=== PATIENT | male | born 1985 | race Caucasian/White ===

== ENCOUNTER 2016-08-30 03:12 | Inpatient (IN) | payer MEDICAID ==
[~2016-08-30] VITALS: Ht 170.2 cm; Wt 80.0 kg
[2016-08-30] VITALS (12 sets, daily range): BP systolic 88–112; BP diastolic 57–67; PULSE 90–95; RESP 14–19; TEMP 98.9; Ht 170.2 cm; Wt 80.0 kg
[2016-08-30] MEDS ORDERED: ONDANSETRON 4 MG INJ IV STA (03:24)
[2016-08-30] MEDS ORDERED: SOD CHLORIDE 0.9% 1,000 ML IV STA ×3 (03:24→06:41)
[2016-08-30] MEDS ORDERED: MIDAZOLAM (DRIP) 50 mg/50 mL 50 ML IV STA ×2 (03:47→17:30)
[2016-08-30] MEDS ORDERED: PROPOFOL 100 ML ONE (03:53)
[2016-08-30] MEDS ORDERED: SOD CHLORIDE 0.9% 1,000 ML IV ONE (04:00)
[2016-08-30] MEDS ORDERED: PIPER-TAZO 3.375 GM IV (PMX) 100 ML IVPB ONE (04:00)
--- NOTE | 2016-08-30 04:03 | ERA ---
ER Documentation Chief Complaint Date/Time DATE: 08/30/16 TIME: 04:01 Chief Complaint HPI 31-year-old man brought in by EMS from home after his family members called 911 for alcohol intoxication. They state he was out with his friends drinking alcohol for most of the night when he lost consciousness and vomited. Family members were later at the bedside deny chronic alcoholism, they deny history of seizures, he had no complaints of chest pain or shortness of breath prior to that episode. HPI was limited as patient was nonverbal. Patient was brought in by EMS on high flow oxygen unresponsive. ROS All systems reviewed and are negative except as per history of present illness. Allergies Allergies: Coded Allergies: No Known Allergy (Unverified , 08/30/16) PMhx/Soc Unknown Smoking Status: Unknown if ever smoked FmHx Family History: No diabetes Physical Exam Vitals Vital Signs Date Time Temp Pulse Resp B/P Pulse Ox O2 Delivery O2 Flow Rate FiO2 08/30/16 03:45 84 14 100 100 08/30/16 03:15 96.8 90 15 134/83 92 Physical Exam GENERAL: Well-developed, well-nourished, unresponsive, afebrile HEENT: Moist mucous membranes, vomitus around the mouth, pink conjunctiva, no cervical spine tenderness or step-off deformities, no goiter, no jaundice or icterus, extraocular movements intact without pain. No submandibular induration , and no pharyngeal erythema NEURO: Unresponsive, pupils equal round reactive to light, no facial asymmetry, GCS equals 3 CARDIAC: Regular rate and rhythm, no murmurs rubs or gallops LUNGS: Poor air entry bilaterally, no wheezing or stridor ABDOMEN: Soft nontender, no guarding, no rigidity, no rebound, no psoas sign no obturator sign. Normoactive bowel sounds SKIN: Warm and dry to touch, no abrasions, contusions, or hematomas, no lacerations, no ecchymosis, no target lesions, and without ulcers EXTREMITIES: No clubbing cyanosis or edema, calves are bilaterally symmetrical, no Homans sign, no popliteal cord sign. Distal pulses equal and bilateral PSYCH: Unable to assess Results 24 hrs Laboratory Tests Test 08/30/16 05:26 Arterial Blood HCO3 19.0mmol/L Arterial Blood Base Excess -6.6mmol/L Arterial Blood Oxygen Saturation 99.3mmHG Bryan Test N/A Arterial Blood Gas Puncture Site Right Brachial Arterial Blood Carboxyhemoglobin 0.3% Arterial Blood Date Drawn 08/30/2016 5:25:39 AM Arterial Blood Methemoglobin 0.5% Arterial Blood pCO2 (Temp correct) 38.3mmhg Arterial Blood pH (Temp corrected) 7.314 Arterial Blood pO2 (Temp corrected) 508.6mmHG Blood Gas A-a O2 Differential 166.1mmHg Blood Gas Actual Respiration Rate 14 Blood Gas Critical Value Read Back Estrella ENGEL Blood Gas Inspiratory Pressure 24.0 Blood Gas Low PEEP Setting 5.0cmH2O Blood Gas Mean Airway Pressure 10 Blood Gas Modality VENT - AC Blood Gas Notified Time 08/30/2016 5:34:19 AM Blood Gas Notified Whom BL Blood Gas Respiration Rate 14.0 Blood Gas Specimen Source Blood arterial Blood Gas Temperature 37.0C Blood Gas Tidal Volume 600.0mL FiO2 100.0% Oxyhemoglobin Percent 98.5% Total Hemoglobin 13.8g/dl Current Medications Medications (Trade) Dose Ordered Sig/Edvin Route PRN Reason Start Time Stop Time Status Last Admin Dose Admin Sodium Chloride (NS) 1,000 ml @ 1,000 mls/hr Q1H STAT IV 08/30/16 03:24 08/30/16 04:23 DC 08/30/16 04:04 Ondansetron HCl 4 mg 4 mg ONCE STAT IV 08/30/16 03:24 08/30/16 03:26 DC 08/30/16 04:04 Sodium Chloride 1,000 ml @ 1,000 mls/hr Q1H ONCE IV 08/30/16 04:00 08/30/16 04:59 DC 08/30/16 05:12 Midazolam HCl 50 ml @ 3 mls/hr ONCE STAT IV 08/30/16 03:47 08/30/16 20:26 08/30/16 04:04 Piperacillin Sod/ Tazobactam Sod 100 ml @ 200 mls/hr ONCE ONCE IVPB 08/30/16 04:00 08/30/16 04:29 DC 08/30/16 05:13 Propofol (Diprivan) 100 ml @ ud STK-MED ONCE .ROUTE 08/30/16 03:53 08/30/16 03:54 DC Lorazepam (Ativan) 2 mg STK-MED ONCE .ROUTE 08/30/16 04:11 08/30/16 04:12 DC Procedures/MDM IV line was established patient was placed on court recording monitor rhythm strip revealed a sinus rhythm at about 80 bpm with upright P and T waves. Patient was afebrile. Blood sugar was normal. EKG performed, read by me: 88 bpm, normal sinus rhythm, normal axis, no acute ST segment changes, narrow QRS complex, with good R-wave progression in precordial leads. Patient's GCS equals 3 and he has evidence of recent vomitus around the mouth and is unable to protect his airway. Endotracheal Intubation by me: Pre assessment performed. Patient was already sedate so he was paralyzed with 100 mg IV succinylcholine. Pre-oxygenation performed with 100% oxygen RSI: Performed w/o complication or hypoxic events. Medications as ordered. Blade: Mac 4 ET Tube: 7.5 cm Depth: 22 cm at the lip Intubation confirmed by colorimetric CO2, equal breath sounds, quiet over the stomach. Chest X-ray 1V Interpreted by me: 3 cm above the lloyd ET tube. Normal soft tissue, No pneumothorax. No obvious infiltrate noted on x-ray although I do suspect recent aspiration CT scan of the brain was performed that was negative for acute bleed mass or shift. Critical Care: Time: 31 minutes, this was time separate from other procedures. Treatments/Evaluations: Close monitoring and treatment of unstable vital signs, cardiorespiratory, and neurologic status, while maintaining tight balance of fluid, respiratory, and cardiac interventions. ABG post intubation revealed a pH of 7.31, PCO2 38, PO2 500 revealing severe metabolic acidosis consistent with his presentation. Patient admitted to intensive care unit under hospitalist. Departure Diagnosis: Primary Impression: Alcohol poisoning Qualified Code: T51.91XA - Alcohol poisoning, accidental or unintentional, initial encounter Additional Impressions: Acute encephalopathy Acute respiratory failure Qualified Code: J96.01 - Acute respiratory failure with hypoxia and hypercapnia Condition: Serious NOLAN HAYES MD Aug 30, 2016 04:03
--- NOTE | 2016-08-30 04:07 | RADRPT ---
PROCEDURE: XR Chest. CLINICAL INDICATION: Abdominal pain. TECHNIQUE: Single frontal view of the chest was obtained COMPARISON: None FINDINGS: Endotracheal intubation is seen, with tip about 2 cm above the lloyd. The heart and mediastinum are within normal limits. The lungs are clear. There is no pleural effusion or pneumothorax. The stomach is distended with air. IMPRESSION: Endotracheal intubation is seen, with tip about 2 cm above the lloyd. RPTAT: [facility] Physician Haile Date Time Electronically viewed and signed by Physician Haile on 08/30/2016 04:06 RS/
[2016-08-30] MEDS ORDERED: LORAZEPAM 2 MG INJ ONE (04:11)
--- NOTE | 2016-08-30 04:48 | RADRPT ---
PROCEDURE: CT Brain without contrast CLINICAL INDICATION: Rule out bleed, altered level of consciousness TECHNIQUE: A CT of the brain was performed on multidetector high-resolution CT scanner utilizing a xial sections from the skull base through the vertex without contrast. The scan was reviewed in sof t tissue brain and high frequency resolution bone algorithm windows. Images were reviewed on a high -resolution PACS workstation. The exam CTDI = 45.01 mGy and the DLP = 720.23 mGy-cm. One or more of the following dose reduction techniques were used: - Automated exposure control. - Adjustment of the mA and/or kV according to patient size. - Use of iterative reconstruction technique. COMPARISON: None available FINDINGS: The ventricles and sulci are symmetric and normal in size and morphology. There is no evidence of i ntracranial hemorrhage, mass effect, edema or midline shift. No abnormal intra-axial or extra-axial fluid collections are seen. The density of the brain is normal and the peck/white matter different iation is well preserved. Brainstem and posterior fossa structures are equally unremarkable. Mucosa l thickening in bilateral inferior frontal and bilateral ethmoid sinuses. The surrounding soft tiss ue scalp and bony calvarium are intact and normal. Endotracheal tube and orogastric tube. Appearanc e of secretions in the nasopharynx consistent with intubation. Some beam-hardening artifact at the b ase of the brain. IMPRESSION: No acute abnormality intracranial seen. Please see above. RPTAT: HJES .Gilles Lopez MD, Date Time Electronically viewed and signed by .Gilles Lopez MD, on 08/30/2016 04:48 .S/
[2016-08-30 05:34] LABS: AADO2 Arterial 166.1 mmHg (7.0-24.0); Arterial Base Excess -6.6 mmol/L (-3.0-3); Arterial COHb 0.3 % (0.0-3.0); Arterial Fraction of Oxyhgb 98.5 % (93.0-99.0); Arterial MetHb 0.5 % (0.0-1.5); Arterial Total Hemglobin 13.8 g/dl (12.0-18.0); Blood Gas Mean Airway Pressure 10; MODE VENT - AC
[2016-08-30 05:48] LABS: BASOPHILS % 0.1 % (0.0-2.0); EOSINOPHILS # 0.1 10^3/ul (0.0-0.5); EOSINOPHILS % 1.1 % (0.0-7.0); HEMATOCRIT 37.7 % (42.0-52.0); HEMOGLOBIN 12.9 g/dl (14.0-18.0); LYMPHOCYTES # 1.3 10^3/ul (0.8-2.9); LYMPHOCYTES % 10.7 % (15.0-51.0); MEAN CORPUSCULAR HEMOGLOBIN 29.5 pg (29.0-33.0); MEAN CORPUSCULAR HGB CONC 34.2 g/dl (32.0-37.0); MEAN CORPUSCULAR VOLUME 86.3 fl (82.0-101.0); MEAN PLATELET VOLUME 8.3 fl (7.4-10.4); MONOCYTE # 0.3 10^3/ul (0.3-0.9); MONOCYTES % 2.4 % (0.0-11.0); NEUTROPHIL # 10.6 10^3/ul (1.6-7.5); NEUTROPHILS % 85.7 % (39.0-77.0); PLATELET COUNT 302 10^3/UL (140-440); RED BLOOD COUNT 4.37 10^6/ul (4.70-6.10); RED CELL DISTRIBUTION WIDTH 13.4 % (11.5-14.5); UNCORRECTED WBC 12.4 10^3/ul (4.8-10.8); WHITE BLOOD COUNT 12.4 10^3/ul (4.8-10.8)
[2016-08-30 05:53] LABS: CHLORIDE 113 mmol/L (97-110)
[2016-08-30 05:54] LABS: ALBUMIN 3.2 g/dl (3.3-4.9); POTASSIUM 3.8 mmol/L (3.5-5.1); SODIUM 151 mmol/L (135-144)
[2016-08-30 05:57] LABS: ALANINE AMINOTRANSFERASE 43 IU/L (13-69); ALBUMIN/GLOBULIN RATIO 1.18; ALKALINE PHOSPHATASE 88 IU/L (42-121); ANION GAP 19 (8-16); ASPARTATE AMINO TRANSFERASE 25 IU/L (15-46); BLOOD UREA NITROGEN 18 mg/dl (7-20); CARBON DIOXIDE 23 mmol/L (21-31); CREATININE 1.24 mg/dl (0.61-1.24); GLUCOSE 120 mg/dl (70-220); TOTAL PROTEIN 5.9 g/dl (6.1-8.1)
[2016-08-30 06:09] LABS: TROPONIN-I < 0.012 ng/ml (0.00-0.12)
[2016-08-30 06:15] LABS: CONDITION 1
[2016-08-30 06:24] LABS: ADD UMIC YES; URINE BILIRUBIN (Dip) NEGATIVE (NEGATIVE); URINE BLOOD (Dip) 1+ (NEGATIVE); URINE COLOR LT. YELLOW (YELLOW); URINE GLUCOSE (Dip) NEGATIVE (NEGATIVE); URINE KETONES (Dip) TRACE (NEGATIVE); URINE LEUKOCYTE ESTERASE (Dip) NEGATIVE (NEGATIVE); URINE NITRITE (Dip) NEGATIVE (NEGATIVE); URINE TOTAL PROTEIN (Dip) NEGATIVE (NEGATIVE); URINE UROBILINOGEN (Dip) 0.2 E.U./dL (0.1-1.0)
[2016-08-30] MEDS ORDERED: ACETAMINOPHEN 650MG/20.3ML CUP PO PRN (06:30)
[2016-08-30] MEDS ORDERED: IPRATROPIUM (HFA) 12.9 GM INHALER INH PRN (06:30)
[2016-08-30] MEDS ORDERED: ACETAMINOPHEN 650 MG SUPP PR PRN (06:30)
[2016-08-30] MEDS ORDERED: ONDANSETRON 4 MG INJ IV PRN (06:30)
[2016-08-30] MEDS ORDERED: ALBUTEROL HFA 8 GM INHALER INH PRN (06:30)
--- NOTE | 2016-08-30 06:43 | QN ---
Documentation Comment The patient was endorsed to me pending ICU placement. The patient was intubated for presumed alcohol intoxication. Patient's alcohol level corroborates this suspicion. I was notified because the patient's blood pressure was low in the 80s. The patient had received 2 L of saline. The patient does have a subtle white count of 12 but no fever, no tachycardia. Slight tachypnea but likely secondary to intoxication. The patient has no source of infection. The patient has been given Zosyn. However, I do not believe this is consistent with sepsis or septic shock. I believe the patient' s hypotension is secondary to relative hypovolemia with concomitant positive pressure ventilation. The patient will benefit from aggressive fluid resuscitation, if the patient is a regular drinker severe dehydration is likely noted. The patient was written for 2 more liters of saline. At this time he does not require pressors. The admitting team was notified. IMELDA CONDON MD Aug 30, 2016 06:43
[2016-08-30] MEDS: DEXTROSE 5%-0.45% NACL 1,000 ML IV SCH ×3 (07:15→22:23)
--- NOTE | 2016-08-30 08:05 | HP ---
DATE OF ADMISSION: 08/30/2016 CHIEF COMPLAINT: Alcohol intoxication and loss of consciousness. HISTORY OF PRESENT ILLNESS: The patient is a 31-year-old male who was brought to the ER by EMS for loss of consciousness and alcohol intoxication. The patient is currently intubated, and as such, in formation is gathered from chart review and from the ER physician. According to family, the patient had been drinking alcohol the whole night and then he had a loss of consciousness, and that is when the family called 911 and the patient was brought to the ER. Also, reportedly, he had vomited whil e he was at home. When the patient presented to the ER, the patient was not arousable and was unable to protect his ai rway. He was also vomiting while he was in the ER. The patient then became unresponsive, and short ly after he was intubated. When he initially presented to the ER, blood pressure was 134/83, heart rate 90, respiratory rate 15, temperature 96.8, oxygen saturation 92% on room air. Laboratory value shows a WBC of 12.4, hemoglobin 12.9. Sodium 151, chloride 113. His alcohol level was 452. A vamshi st x-ray shows clear lungs with no pleural effusions or pneumothorax. Brain CT shows no acute intra cranial abnormality. Currently, the patient is awaiting ICU admission. REVIEW OF SYSTEMS: Unable to assess. PAST MEDICAL HISTORY: Unknown. PAST SURGICAL HISTORY: Unknown. SOCIAL HISTORY: Unknown. ALLERGIES: Unknown. HOME MEDICATIONS: Unknown. PHYSICAL EXAMINATION: VITAL SIGNS: Blood pressure 101/65, heart rate 87, respiratory rate 14, temperature earlier was 96. 8, oxygen saturation 100% on 45% FIO2 on vent. GENERAL: The patient is intubated, sedated, looks comfortable on a vent. HEENT: No obvious head deformity. His pupils are sluggishly reactive to light. CARDIOVASCULAR: Tachycardic with regular rhythm. LUNGS: Good air movement, slightly diminished breath sounds at the bases anteriorly. ABDOMEN: Soft. Positive bowel sounds. EXTREMITIES: No edema. NEUROLOGIC: Unable to assess given he is intubated and sedated, but his pupils are sluggishly react james to light, and he does have gag reflex. LABORATORY DATA: Pertinent positives as mentioned in the HPI. IMAGING: Chest x-ray and brain CT with results as mentioned in the HPI. IMPRESSION: 1. Alcohol intoxication. 2. Ventilator dependent respiratory failure, secondary to above. 3. Hypernatremia. 4. Systemic inflammatory response syndrome as evidenced by leukocytosis and tachycardia, likely str ess induced secondary to alcohol intoxication but also possibly sepsis from aspiration pneumonia. 5. Incomplete data. PLAN: Admit to ICU. I will start him on a banana bag and Librium through his NG tube. He will rec eive as needed Ativan for withdrawal. He will be sedated with Versed to benefit from the benzo effe ct. Given presentation of SIRS, he will be placed on antibiotic given there is a possibility of asp iration pneumonia. We will follow up on culture results. We will place a pulmonary consult to dandre golden. We will correct electrolytes as needed. Further workup and management per clinical course. Dictated By: YARELI AYALA/GLORIA Conf#: [id number] DID#: [id number]
[2016-08-30] MEDS: MULTIVITAMINS 10 ML, THIAMINE 100 MG, FOLIC ACID 1 MG in SOD CHLORIDE 0.9% 1,000 ML IVPB SCH (08:29)
[2016-08-30] MEDS: FAMOTIDINE 20 MG INJ IV SCH ×2 (08:30→22:16)
[2016-08-30] MEDS: CHLORDIAZEPOXIDE 25 MG CAP NGT SCH ×3 (09:21→22:19)
[2016-08-30] MEDS: MIDAZOLAM (DRIP) 50 mg/50 mL 50 ML IV SCH ×2 (13:45→22:24)
[2016-08-30 18:24] LABS: BASOPHILS % 0.2 % (0.0-2.0); HEMATOCRIT 35.4 % (42.0-52.0); HEMOGLOBIN 11.9 g/dl (14.0-18.0); LYMPHOCYTES # 2.3 10^3/ul (0.8-2.9); MEAN CORPUSCULAR HEMOGLOBIN 29.7 pg (29.0-33.0); MEAN CORPUSCULAR HGB CONC 33.5 g/dl (32.0-37.0); MEAN CORPUSCULAR VOLUME 88.6 fl (82.0-101.0); MEAN PLATELET VOLUME 8.6 fl (7.4-10.4); MONOCYTE # 0.8 10^3/ul (0.3-0.9); MONOCYTES % 4.3 % (0.0-11.0); NEUTROPHILS % 83.5 % (39.0-77.0); PLATELET COUNT 299 10^3/UL (140-440); RED BLOOD COUNT 3.99 10^6/ul (4.70-6.10); RED CELL DISTRIBUTION WIDTH 13.9 % (11.5-14.5); UNCORRECTED WBC 19.2 10^3/ul (4.8-10.8); WHITE BLOOD COUNT 19.2 10^3/ul (4.8-10.8)
[2016-08-30 18:25] LABS: ALBUMIN 2.6 g/dl (3.3-4.9)
[2016-08-30 18:26] LABS: POTASSIUM 3.6 mmol/L (3.5-5.1)
[2016-08-30 18:27] LABS: CONDITION 1
[2016-08-30 18:28] LABS: ALBUMIN/GLOBULIN RATIO 1.04; BILIRUBIN,INDIRECT 0.4 mg/dl (0-1.1); BILIRUBIN,TOTAL 0.4 mg/dl (0.2-1.3); CREATININE 0.65 mg/dl (0.61-1.24); TOTAL PROTEIN 5.1 g/dl (6.1-8.1)
[2016-08-30 18:29] LABS: MAGNESIUM 1.7 mg/dl (1.7-2.5); PHOSPHORUS 2.9 mg/dl (2.5-4.9)
[2016-08-30] MEDS: LORAZEPAM 2 MG INJ IV PRN (18:32)
[2016-08-31] VITALS (91 sets, daily range): BP systolic 86–156; BP diastolic 52–129; PULSE 68–115; RESP 6–27
[2016-08-31] MEDS: FENTAnyl (DRIP) 1000 mcg/100mL 100 ML IV SCH ×2 (02:16→19:04)
[2016-08-31] MEDS: MIDAZOLAM (DRIP) 50 mg/50 mL 50 ML IV SCH ×4 (03:07→21:27)
[2016-08-31 05:52] LABS: POTASSIUM 3.3 mmol/L (3.5-5.1)
[2016-08-31 05:55] LABS: CREATININE 0.64 mg/dl (0.61-1.24)
[2016-08-31 05:56] LABS: CALCIUM 6.6 mg/dl (8.4-10.2); MAGNESIUM 1.3 mg/dl (1.7-2.5); PHOSPHORUS 2.5 mg/dl (2.5-4.9)
[2016-08-31] MEDS: DEXTROSE 5%-0.45% NACL 1,000 ML IV SCH ×3 (06:13→23:49)
[2016-08-31] MEDS ORDERED: MAGNESIUM SULFATE 3 GM in SOD CHLORIDE 0.9% 100 ML IVPB ONE (06:30)
[2016-08-31] MEDS: POTASSIUM CHLORIDE 50 ML IVPB SCH ×2 (06:51→08:51)
--- NOTE | 2016-08-31 07:35 | RADRPT ---
PROCEDURE: XR Chest. CLINICAL INDICATION: Respiratory failure TECHNIQUE: A single AP view of the chest was obtained. COMPARISON: Chest x-ray dated 08/30/2016 FINDINGS: The endotracheal tube tip is approximately 3.0 cm above the lloyd. The tip of the enteric tube ex tends below the left diaphragm. Lung volumes are low with compressive changes, vascular crowding and basilar atelectasis. No focal a irspace opacity, pleural effusion or pneumothorax is seen. The cardiomediastinal silhouette is with in normal limits for size. The osseous structures are unremarkable. IMPRESSION: 1. Low lung volumes with compressive changes and basilar atelectasis, increased when compared to th e prior examination. 2. Tubes and lines, as described above. RPTAT: HH .Patria Queen MD, MD Date Time Electronically viewed and signed by .Patria Queen MD, on 08/31/2016 07:35 .G/
[2016-08-31 08:18] LABS: AADO2 Arterial 96.3 mmHg (7.0-24.0); Allen Test ACCEPTAB; Arterial Base Excess -3.6 mmol/L (-3.0-3); Arterial COHb 0.3 % (0.0-3.0); Arterial Fraction of Oxyhgb 94.6 % (93.0-99.0); Arterial HCO3 20.8 mmol/L (22.0-26.0); Arterial MetHb 0.4 % (0.0-1.5); Arterial Total Hemglobin 11.3 g/dl (12.0-18.0); MODE VENT - AC
[2016-08-31] MEDS: FAMOTIDINE 20 MG INJ IV SCH ×2 (08:52→21:27)
[2016-08-31] MEDS: CHLORDIAZEPOXIDE 25 MG CAP NGT SCH ×3 (08:53→21:27)
--- NOTE | 2016-08-31 09:53 | CONS ---
Date/Time of Note Date/Time of Note DATE: 08/31/16 TIME: 09:44 Assessment/Plan Assessment/Plan Additional Assessment/Plan Ventilator settings; AC of 16, tidal volume of 600, PEEP of 5, 30% FiO2. Next Assessment and recommendation; next 1. Patient admitted with alcohol intoxication with possibly aspiration pneumonia. There has been significant increase in leukocytosis today. Decrease tidal volume to 500 mL. Add Zosyn. Add Lovenox for DVT prophylaxis. Stop sedation now to assess mental status. Once the patient is off sedative effect he will be evaluated for possible weaning from ventilator. I did have a detailed discussion with the patient's at bedside and answered all her questions. Meanwhile potassium and magnesium have been replaced. Consultation Date/Type/Reason Admit Date/Time Aug 30, 2016 at 05:37 Date of Consultation: Aug 31, 2016 Type of Consultation: Pulmonary/critical care Reason for Consultation Pulmonary consult requested patient admitted for respiratory failure. Next History of present illness; patient is a 30-year-old male who was brought into the emergency room yesterday after the patient was found semi- responsive at home also but history there was a significant emesis noted upon evaluation here in the ER the patient was found to be inebriated with alcohol and for airway protection was intubated and then subsequently transferred to ICU. The time I saw the patient this morning the patient is on ventilator, despite being on sedation, he is somewhat arousable. History was obtained from medical records as well as from patient's who was present in the room. According to her, the patient does drink off and on and does drink excessively at times. However there has been no history of any prior respiratory failure. Past medical history; is none. Medications Outpatient medications; none. In-hospital medications were reviewed. Allergies; none. Social history; patient drinks alcohol. Most of any drug abuse or any tobacco abuse. Family history; he is , he has 5 children. No history of any illnesses in the family. Occupational history; patient is involved in construction type of work. Review of systems; currently unable to be obtained. General exam; young male orally intubated, currently in no distress. Awake. Social History Smoking Status: Unknown if ever smoked Exam/Review of Systems Vital Signs Vitals Vital Signs Date Time Temp Pulse Resp B/P Pulse Ox O2 Delivery O2 Flow Rate FiO2 08/31/16 08:00 97 08/31/16 07:34 14 98 30 08/31/16 06:15 107/63 08/31/16 06:00 Mechanical Ventilator 08/31/16 04:00 100.1 Intake and Output 08/30/16 08/30/16 08/31/16 15:00 23:00 07:00 Intake Total 1050 ml 2120 ml 1001 ml Output Total 1100 ml 1400 ml 725 ml Balance -50 ml 720 ml 276 ml Exam HEENT examination; supple neck, no JVD. No lymphadenopathy. Orally intubated. Pupils are small bilaterally. No neck masses. No thyromegaly. No lymph adenopathy. Chest examination; clear to auscultation bilaterally. S1-S2 audible, no murmurs. Regular rhythm. Abdomen examination; soft, nontender. No organomegaly. Bowel sounds audible. No scars are present. Extremity examination; no peripheral edema. Pulses 1+ bilaterally. [employer] examination; patient is awake. He is mildly sedated. Results Result Diagram: 08/30/16 1650 08/31/16 0445 Results 24 hrs Laboratory Tests Test 08/30/16 16:50 08/31/16 04:45 08/31/16 07:00 Alanine Aminotransferase (ALT/SGPT) 58 Albumin 2.6 L Albumin/Globulin Ratio 1.04 Alkaline Phosphatase 70 Anion Gap 16 13 Aspartate Amino Transf (AST/SGOT) 102 #H Basophils # 0.0 Basophils % 0.2 Blood Urea Nitrogen 7 # 5 L Calcium Level 6.0 L 6.6 L Carbon Dioxide Level 20 L 20 L Chloride Level 116 H 112 H Creatinine 0.65 0.64 Direct Bilirubin 0.00 Eosinophils # 0.0 Eosinophils % 0.0 Globulin 2.50 Glucose Level 112 120 Hematocrit 35.4 L Hemoglobin 11.9 L Indirect Bilirubin 0.4 Lymphocytes # 2.3 Lymphocytes % 12.0 L Magnesium Level 1.7 1.3 L Mean Corpuscular Hemoglobin 29.7 Mean Corpuscular Hemoglobin Concent 33.5 Mean Corpuscular Volume 88.6 Mean Platelet Volume 8.6 Monocytes # 0.8 Monocytes % 4.3 Neutrophils # 16.0 H Neutrophils % 83.5 H Nucleated Red Blood Cells # 0.0 Nucleated Red Blood Cells % 0.0 Phosphorus Level 2.9 2.5 Platelet Count 299 Potassium Level 3.6 3.3 L Red Blood Count 3.99 L Red Cell Distribution Width 13.9 Sodium Level 148 H 142 Total Bilirubin 0.4 Total Protein 5.1 L White Blood Count 19.2 #H Arterial Blood HCO3 20.8 L Arterial Blood Base Excess -3.6 L Arterial Blood Oxygen Saturation 95.3 Bryan Test ACCEPTAB Arterial Blood Gas Puncture Site Right Radial Arterial Blood Carboxyhemoglobin 0.3 Arterial Blood Date Drawn 08/31/2016 7:50:03 AM Arterial Blood Methemoglobin 0.4 Arterial Blood pCO2 (Temp correct) 35.2 Arterial Blood pH (Temp corrected) 7.389 Arterial Blood pO2 (Temp corrected) 76.2 L Blood Gas A-a O2 Differential 96.3 H Blood Gas Actual Respiration Rate 14 Blood Gas Low PEEP Setting 5.0 Blood Gas Modality VENT - AC Blood Gas Notified Time 08/31/2016 8:18:12 AM Blood Gas Notified Whom DT Blood Gas Respiration Rate 14.0 Blood Gas Specimen Source Blood arterial Blood Gas Temperature 37.0 Blood Gas Tidal Volume 600.0 FiO2 30.0 Oxyhemoglobin Percent 94.6 Total Hemoglobin 11.3 L Medications Medications Current Medications Dextrose/Sodium Chloride (D5-1/2ns) 1,000 ml @ 125 mls/hr Q8H IV Last administered on 08/31/16 06:13; Admin Dose 125 MLS/HR; Start 08/30/16 at 06:30 Ondansetron HCl (Zofran Inj) 4 mg Q6H PRN IV NAUSEA AND/OR VOMITING; Start at 06:30 Acetaminophen (Tylenol Liquid) 650 mg Q6H PRN PO PAIN LEVEL 1-3 OR FEVER; Start 08/30/16 at 06:30 Acetaminophen (Tylenol Supp) 650 mg Q4H PRN [place] PAIN LEVEL 1-3 OR FEVER; Start 08/30/16 at 06:30 Lorazepam (Ativan) 2 mg Q1H PRN IV alcohol withdrawal Last administered on 08/30 18:32; Admin Dose 2 MG; Start 08/30/16 at 06:30 Famotidine 20 mg 20 mg Q12 IV Last administered on 08/31/16 08:52; Admin Dose 20 MG; Start 08/30/16 at 09:00 Multivitamins/ Thiamine HCl/ Folic Acid/Sodium Chloride (Mvi-12 Adult/ Vitamin B1/Folic Acid/NS) 1,011.2 ml @ 125 mls/ hr DAILY@09 IVPB Last administered on 08/30/16 08:29; Admin Dose 125 MLS/HR; Start 08/30/16 at 09:00; Stop 09/02/16 at 11:00 Chlordiazepoxide 75 mg 75 mg TID NGT Last administered on 08/31/16 08:53; Admin Dose 75 MG; Start 08/30/16 at 09:00 Fentanyl 100 ml @ 2.5 mls/hr TITRATE IV Last administered on 08/31/16 02:16; Admin Dose 2.5 MLS/HR; Start 08/31/16 at 02:30 Magnesium Sulfate/ Sodium Chloride (Magnesium Sulfate/NS) 106 ml @ 35.333 mls/ hr ONCE ONCE IVPB Last administered on 08/31/16 08:52; Admin Dose 35.333 MLS/ HR; Start 08/31/16 at 06:30; Stop 08/31/16 at 09:29 KATHIA DURAN Aug 31, 2016 09:52
[2016-08-31 10:46] LABS: HEMOGLOBIN 10.1 g/dl (14.0-18.0)
[2016-08-31 10:47] LABS: BASOPHILS % 0.3 % (0.0-2.0); EOSINOPHILS % 0.2 % (0.0-7.0); HEMATOCRIT 30.9 % (42.0-52.0); LYMPHOCYTES % 13.1 % (15.0-51.0); MEAN CORPUSCULAR HEMOGLOBIN 28.9 pg (29.0-33.0); MEAN CORPUSCULAR HGB CONC 32.7 g/dl (32.0-37.0); MEAN CORPUSCULAR VOLUME 88.3 fl (82.0-101.0); MEAN PLATELET VOLUME 10.4 fl (7.4-10.4); MONOCYTES % 7.4 % (0.0-11.0); NEUTROPHILS % 78.5 % (39.0-77.0); PLATELET COUNT 265 10^3/UL (140-440); RED CELL DISTRIBUTION WIDTH 13.7 % (11.5-14.5)
[2016-08-31 10:48] LABS: LYMPHOCYTES # 1.7 10^3/ul (0.8-2.9); NEUTROPHIL # 10.2 10^3/ul (1.6-7.5)
--- NOTE | 2016-08-31 11:10 | PN ---
DATE: 08/31/2016 SUBJECTIVE DATA: The patient remains on mechanical ventilator. The patient had a febrile illness in the morning. OBJECTIVE DATA: VITAL SIGNS: Temperature 100.1, pulse rate 93, respiratory rate 14, blood pressure 107/60 and oxygen saturation 98% on 30% FIO2 via mechanical ventilator. GENERAL: This is a slightly overweight male lying in bed, orally intubated and mechanically ventilated. HEENT: Head normocephalic and atraumatic. Eyes: Anicteric sclerae. Conjunctivae clear. ENT: Nasal septum is midline. Oral mucosa is dry. Orally intubated. NECK: Supple. No JVD noticed. RESPIRATORY: Bilaterally diminished breath sounds. Mechanically ventilated. On AC mode ventilation. Diminished breath sounds. CARDIAC: Regular rate and rhythm. No obvious murmurs heard. ABDOMEN: Soft, nontender and nondistended. Bowel sounds positive in all 4 quadrants. GENITOURINARY: The patient has a Carrillo catheter in place. EXTREMITIES: No cyanosis, no clubbing, no edema. Peripheral pulses are palpable. NEUROLOGIC: The patient is currently sedated. LABORATORY AND DIAGNOSTIC DATA: WBC 19.2, hemoglobin 11.9, hematocrit 35.4, platelet count 299. Sodium 142, potassium 3.3, chloride 112, carbon dioxide 20 , anion gap 13, BUN 5, creatinine 0.60, glucose 120, calcium 6.6, phosphorus 2.5 , magnesium 1.3. ASSESSMENT AND PLAN: 1. Alcohol intoxication. The patient currently on a daily banana bag. The patient on a Versed drip. The patient also on a tapering dose of Librium. 2. Acute hypoxic respiratory failure secondary to alcohol intoxication. The patient currently on a mechanical ventilator.Weaning as per pulmonary. 3. Systemic inflammatory response syndrome with leukocytosis, sinus tachycardia and febrile illness. The patient was started on empiric antibiotics including coverage for anaerobes for any underlying aspiration. Pancultures will be sent on this patient. 4. Normocytic, normochromic anemia. We will monitor the H and H closely. Will order an iron panel to evaluate for any underlying iron deficiency. 5. Hypomagnesemia. Will replete. 6. Hypokalemia. We will replete. 8. Fluid, electrolytes and nutrition. The patient currently n.p.o. Continue IV fluids. 9. DVT prophylaxis, subcutaneous Lovenox. 10. Gastrointestinal prophylaxis. Histamine 2 receptor blockers. 11. Plan. Ventilator weaning as per pulmonary. Replete potassium and magnesium. Obtain pancultures. The case was discussed with Dr. Badillo. CRITICAL CARE TIME: 35 minutes. FRANKLYN BADILLO MD AM/NTS Conf#: [id number] DID#: [id number]
[2016-08-31 12:10] LABS: IRON 39 ug/dl (35-150)
[2016-08-31 12:19] LABS: TOTAL IRON BINDING CAPACITY 219 ug/dl (241-421)
[2016-08-31] MEDS: PIPER-TAZO 3.375 GM IV (PMX) 100 ML IVPB SCH ×2 (13:59→21:27)
[2016-08-31] MEDS: MULTIVITAMINS 10 ML, THIAMINE 100 MG, FOLIC ACID 1 MG in SOD CHLORIDE 0.9% 1,000 ML IVPB SCH (13:59)
[2016-09-01] VITALS (44 sets, daily range): BP systolic 98–138; BP diastolic 57–87; PULSE 61–89; RESP 14–39
[2016-09-01] MEDS: MIDAZOLAM (DRIP) 50 mg/50 mL 50 ML IV SCH ×3 (02:31→19:05)
[2016-09-01] MEDS: DEXTROSE 5%-0.45% NACL 1,000 ML IV SCH ×3 (05:55→22:30)
[2016-09-01] MEDS: PIPER-TAZO 3.375 GM IV (PMX) 100 ML IVPB SCH ×3 (05:55→21:42)
[2016-09-01 05:56] LABS: POTASSIUM 3.9 mmol/L (3.5-5.1)
[2016-09-01 05:58] LABS: CREATININE 0.67 mg/dl (0.61-1.24)
[2016-09-01 06:02] LABS: BASOPHIL # 0.1 10^3/ul (0.0-0.1); BASOPHILS % 0.5 % (0.0-2.0); EOSINOPHILS # 0.8 10^3/ul (0.0-0.5); EOSINOPHILS % 6.3 % (0.0-7.0); HEMATOCRIT 34.5 % (42.0-52.0); HEMOGLOBIN 11.8 g/dl (14.0-18.0); LYMPHOCYTES # 3.3 10^3/ul (0.8-2.9); LYMPHOCYTES % 25.1 % (15.0-51.0); MEAN CORPUSCULAR HEMOGLOBIN 29.9 pg (29.0-33.0); MEAN CORPUSCULAR HGB CONC 34.2 g/dl (32.0-37.0); MEAN CORPUSCULAR VOLUME 87.4 fl (82.0-101.0); MEAN PLATELET VOLUME 8.4 fl (7.4-10.4); MONOCYTES % 7.6 % (0.0-11.0); NEUTROPHIL # 7.9 10^3/ul (1.6-7.5); NEUTROPHILS % 60.5 % (39.0-77.0); PLATELET COUNT 268 10^3/UL (140-440); RED BLOOD COUNT 3.95 10^6/ul (4.70-6.10); RED CELL DISTRIBUTION WIDTH 13.9 % (11.5-14.5); UNCORRECTED WBC 13.1 10^3/ul (4.8-10.8); WHITE BLOOD COUNT 13.1 10^3/ul (4.8-10.8)
[2016-09-01 06:13] LABS: CONDITION 1; NUCLEATED RED BLOOD CELLS # 0.3 10^3/ul (0.0-0.0)
[2016-09-01 07:06] LABS: MAGNESIUM 2.1 mg/dl (1.7-2.5); PHOSPHORUS 2.4 mg/dl (2.5-4.9)
[2016-09-01 07:07] LABS: CHOL/HDL RATIO 3.8 RATIO
[2016-09-01 07:30] LABS: THYROID STIMULATING HORMONE 1.09 MIU/L (0.465-4.680)
[2016-09-01] MEDS: CHLORDIAZEPOXIDE 25 MG CAP NGT SCH ×4 (08:12→20:36)
[2016-09-01] MEDS: FAMOTIDINE 20 MG INJ IV SCH ×2 (08:12→20:37)
[2016-09-01] MEDS: ENOXAPARIN 30 MG/0.3 ML SYG SC SCH (08:13)
--- NOTE | 2016-09-01 08:36 | PN ---
Date/Time of Note Date/Time of Note DATE: 09/01/16 TIME: 08:35 Assessment/Plan VTE Prophylaxis VTE Prophylaxis Intervention: LMWH Lines/Catheters IV Catheter Type (from [facility]): Peripheral IV Urinary Cath still in place: Yes Reason Cath still needed: other (indicate) (Orally intubated and sedated.) Assessment/Plan Chief Complaint/Hosp Course 1. Alcohol intoxication. The patient currently on a daily banana bag. The patient on a Versed drip. The patient also on a tapering dose of Librium. 2. Acute hypoxic respiratory failure secondary to alcohol intoxication. The patient currently on a mechanical ventilator. Ventilator weaning as per pulmonary. 3. Systemic inflammatory response syndrome with leukocytosis, sinus tachycardia , and febrile illness. The patient was started on empiric antibiotics including coverage for anaerobes for any underlying aspiration. Pancultures pending. 4. Normocytic normochromic anemia. Will monitor the H and H closely. Iron panel showing iron deficiency. Will start the patient on iron supplements. 5. Vitamin D deficiency. Will start the patient on vitamin D supplements. 6. Fluid, electrolytes and nutrition. The patient currently n.p.o. Continue IV fluids. 7. DVT prophylaxis, subcutaneous Lovenox. 8. Gastrointestinal prophylaxis. Histamine 2 receptor blockers. 9. Plan. Ventilator weaning as per pulmonary. Start iron supplements. Start vitamin D supplements. Defer initiation of tube feedings to pulmonary. Case discussed with Dr. Badillo. Critical Care time: 35 minutes. Problems: Subjective 24 Hr Interval Summary Free Text/Dictation The patient remains mechanically ventilated. Vital signs stable. Exam/Review of Systems Vital Signs Vitals Vital Signs Date Time Temp Pulse Resp B/P Pulse Ox O2 Delivery O2 Flow Rate FiO2 09/01/16 06:00 87 15 118/71 95 Mechanical Ventilator 09/01/16 05:40 30 09/01/16 04:00 98.8 Intake and Output 08/31/16 08/31/16 09/01/16 15:00 23:00 07:00 Intake Total 1294 ml 1202 ml 1073 ml Output Total 700 ml 800 ml 1130 ml Balance 594 ml 402 ml -57 ml Exam GENERAL: This is a slightly overweight male lying in bed, orally intubated and mechanically ventilated. HEENT: Head normocephalic and atraumatic. Eyes: Anicteric sclerae. Conjunctivae clear. ENT: Nasal septum is midline. Oral mucosa is dry. Orally intubated. NECK: Supple. No JVD noticed. RESPIRATORY: Bilaterally diminished breath sounds. Mechanically ventilated. On AC mode ventilation. Diminished breath sounds. CARDIAC: Regular rate and rhythm. No obvious murmurs heard. ABDOMEN: Soft, nontender and nondistended. Bowel sounds positive in all 4 quadrants. GENITOURINARY: The patient has a Carrillo catheter in place. EXTREMITIES: No cyanosis, no clubbing, no edema. Peripheral pulses are palpable. NEUROLOGIC: The patient is currently sedated. Results Result Diagram: 09/01/1631 09/01/16 0531 Results 24 hrs Laboratory Tests Test 08/31/16 11:43 09/01/16 05:31 Ferritin 70.9 Iron Level 39 Percent Iron Saturation 18 L Total Iron Binding Capacity 219 L Vitamin D 1,25-Dihydroxy 20.6 L Anion Gap 14 Basophils # 0.1 Basophils % 0.5 Blood Urea Nitrogen 5 L Calcium Level 8.0 L Carbon Dioxide Level 23 Chloride Level 107 Cholesterol Level 138 Cholesterol/HDL Ratio 3.8 Creatinine 0.67 Eosinophils # 0.8 H Eosinophils % 6.3 Free Thyroxine 1.16 Glucose Level 100 HDL Cholesterol 36 Hematocrit 34.5 L Hemoglobin 11.8 L LDL Cholesterol, Calculated 78 Lymphocytes # 3.3 H Lymphocytes % 25.1 Magnesium Level 2.1 Mean Corpuscular Hemoglobin 29.9 Mean Corpuscular Hemoglobin Concent 34.2 Mean Corpuscular Volume 87.4 Mean Platelet Volume 8.4 Monocytes # 1.0 H Monocytes % 7.6 Neutrophils # 7.9 H Neutrophils % 60.5 Nucleated Red Blood Cells # 0.3 H Nucleated Red Blood Cells % 2.0 H Phosphorus Level 2.4 L Platelet Count 268 Potassium Level 3.9 Red Blood Count 3.95 L Red Cell Distribution Width 13.9 Sodium Level 140 Thyroid Stimulating Hormone (TSH) 1.090 Triglycerides Level 121 White Blood Count 13.1 H Medications Medications Current Medications Dextrose/Sodium Chloride (D5-1/2ns) 1,000 ml @ 125 mls/hr Q8H IV Last administered on 09/01/16t 05:55; Admin Dose 125 MLS/HR; Start 08/30/16 at 06:30 Ondansetron HCl (Zofran Inj) 4 mg Q6H PRN IV NAUSEA AND/OR VOMITING; Start at 06:30 Acetaminophen (Tylenol Liquid) 650 mg Q6H PRN PO PAIN LEVEL 1-3 OR FEVER; Start 08/30/16 at 06:30 Acetaminophen (Tylenol Supp) 650 mg Q4H PRN [place] PAIN LEVEL 1-3 OR FEVER; Start 08/30/16 at 06:30 Lorazepam (Ativan) 2 mg Q1H PRN IV alcohol withdrawal Last administered on 08/30 18:32; Admin Dose 2 MG; Start 08/30/16 at 06:30 Famotidine 20 mg 20 mg Q12 IV Last administered on 09/01/16 08:12; Admin Dose 20 MG; Start 08/30/16 at 09:00 Multivitamins/ Thiamine HCl/ Folic Acid/Sodium Chloride (Mvi-12 Adult/ Vitamin B1/Folic Acid/NS) 1,011.2 ml @ 125 mls/ hr DAILY@09 IVPB Last administered on 08/31/16 13:59; Admin Dose 125 MLS/HR; Start 08/30/16 at 09:00; Stop 09/02/16 at 11:00 Chlordiazepoxide 75 mg 75 mg TID NGT Last administered on 09/01/16 08:12; Admin Dose 75 MG; Start 08/30/16 at 09:00 Fentanyl 100 ml @ 2.5 mls/hr TITRATE IV Last administered on 08/31/16 19:04; Admin Dose 4 MLS/HR; Start 08/31/16 at 02:30 Piperacillin Sod/ Tazobactam Sod (Zosyn 3.375gm/ 100 ml (Pmx)) 100 ml @ 200 mls /hr Q8 IVPB Last administered on 09/01/16 05:55; Admin Dose 200 MLS/HR; Start 08/31/16 at 14:00 Enoxaparin Sodium (Lovenox) 30 mg DAILY SC Last administered on 09/01/16 08:13 ; Admin Dose 30 MG; Start 09/01/16 at 09:00 FRANKLYN PENA NP Sep 01, 2016 08:36
[2016-09-01] MEDS: CHOLECALCIFEROL 1,000 UNIT TAB NGT SCH (09:20)
[2016-09-01] MEDS: FERROUS SULFATE 60 MG/ML 5ML CUP NGT SCH ×2 (09:20→20:36)
--- NOTE | 2016-09-01 09:40 | CONS ---
Date/Time of Note Date/Time of Note DATE: 09/01/16 TIME: 09:35 Assessment/Plan Assessment/Plan Additional Assessment/Plan Ventilator settings; AC of 14, tidal volume 500, PEEP of 5, 30% FiO2. Assessment and recommendations; 1. Patient admitted with acute alcohol intoxication requiring area protection intubated. 2. Some element of aspiration pneumonia. 3. History of alcohol abuse. 4. Hypokalemia. Stop sedation. Once the patient is off sedative effect he will be evaluated for possible weaning from ventilator. Meanwhile potassium has been replaced. Continue Zosyn for now. I did have a detailed discussion with the patient's at bedside and answered all her questions. Consultation Date/Type/Reason Admit Date/Time Aug 30, 2016 at 05:37 Initial Consult Date 08/31/16 Type of Consultation: Pulmonary/critical care 24 HR Interval Summary Free Text/Dictation Patient's condition remains critical. Still requiring full ventilator support. She has been taken off sedation short while ago and is now waking up gradually. Has remained hemodynamically stable. General examination; young male, or intubated. Awake. Currently in no distress. Exam/Review of Systems Vital Signs Vitals Vital Signs Date Time Temp Pulse Resp B/P Pulse Ox O2 Delivery O2 Flow Rate FiO2 09/01/16 06:00 87 15 118/71 95 Mechanical Ventilator 09/01/16 05:40 30 09/01/16 04:00 98.8 Intake and Output 08/31/16 08/31/16 09/01/16 14:59 22:59 06:59 Intake Total 1094 ml 1402 ml 1212 ml Output Total 650 ml 785 ml 1070 ml Balance 444 ml 617 ml 142 ml Exam H EENT examination; supple neck, no JVD. No lymphadenopathy. Midline trachea. Orally intubated. Midsize pupils reactive to light bilaterally. No neck masses. Chest examination; clear to auscultation bilaterally. S1-S2 audible, no murmurs. Regular rhythm. Abdomen examination; soft, nontender. No organomegaly. Bowel sounds audible. Extremity examination; no peripheral edema. Pulses 2+ bilaterally. HEEL STAINER examination; patient moves all 4 extremities. Results Result Diagram: 09/01/1631 09/01/1631 Results 24 hrs Laboratory Tests Test 08/31/16 11:43 09/01/16 05:31 Ferritin 70.9 Iron Level 39 Percent Iron Saturation 18 L Total Iron Binding Capacity 219 L Vitamin D 1,25-Dihydroxy 20.6 L Anion Gap 14 Basophils # 0.1 Basophils % 0.5 Blood Urea Nitrogen 5 L Calcium Level 8.0 L Carbon Dioxide Level 23 Chloride Level 107 Cholesterol Level 138 Cholesterol/HDL Ratio 3.8 Creatinine 0.67 Eosinophils # 0.8 H Eosinophils % 6.3 Free Thyroxine 1.16 Glucose Level 100 HDL Cholesterol 36 Hematocrit 34.5 L Hemoglobin 11.8 L Hemoglobin A1c 5.9 LDL Cholesterol, Calculated 78 Lymphocytes # 3.3 H Lymphocytes % 25.1 Magnesium Level 2.1 Mean Corpuscular Hemoglobin 29.9 Mean Corpuscular Hemoglobin Concent 34.2 Mean Corpuscular Volume 87.4 Mean Platelet Volume 8.4 Monocytes # 1.0 H Monocytes % 7.6 Neutrophils # 7.9 H Neutrophils % 60.5 Nucleated Red Blood Cells # 0.3 H Nucleated Red Blood Cells % 2.0 H Phosphorus Level 2.4 L Platelet Count 268 Potassium Level 3.9 Red Blood Count 3.95 L Red Cell Distribution Width 13.9 Sodium Level 140 Thyroid Stimulating Hormone (TSH) 1.090 Triglycerides Level 121 White Blood Count 13.1 H Medications Medications Current Medications Dextrose/Sodium Chloride (D5-1/2ns) 1,000 ml @ 125 mls/hr Q8H IV Last administered on 09/01/16 05:55; Admin Dose 125 MLS/HR; Start 08/30/16 at 06:30 Ondansetron HCl (Zofran Inj) 4 mg Q6H PRN IV NAUSEA AND/OR VOMITING; Start at 06:30 Acetaminophen (Tylenol Liquid) 650 mg Q6H PRN PO PAIN LEVEL 1-3 OR FEVER; Start 08/30/16 at 06:30 Acetaminophen (Tylenol Supp) 650 mg Q4H PRN [place] PAIN LEVEL 1-3 OR FEVER; Start 08/30/16 at 06:30 Lorazepam (Ativan) 2 mg Q1H PRN IV alcohol withdrawal Last administered on 08/30 18:32; Admin Dose 2 MG; Start 08/30/16 at 06:30 Famotidine 20 mg 20 mg Q12 IV Last administered on 09/01/16 08:12; Admin Dose 20 MG; Start 08/30/16 at 09:00 Multivitamins 10 ml/Thiamine HCl 100 mg/Folic Acid 1 mg/Sodium Chloride 1,011.2 ml @ 125 mls/ hr DAILY@09 IVPB Last administered on 08/31/16 13:59; Admin Dose 125 MLS/HR; Start 08/30/16 at 09:00; Stop 09/02/16 at 11:00 Fentanyl 100 ml @ 2.5 mls/hr TITRATE IV Last administered on 08/31/16 19:04; Admin Dose 4 MLS/HR; Start 08/31/16 at 02:30 Piperacillin Sod/ Tazobactam Sod (Zosyn 3.375gm/ 100 ml (Pmx)) 100 ml @ 200 mls /hr Q8 IVPB Last administered on 09/01/16 05:55; Admin Dose 200 MLS/HR; Start 08/31/16 at 14:00 Enoxaparin Sodium (Lovenox) 30 mg DAILY SC Last administered on 09/01/16 08:13 ; Admin Dose 30 MG; Start 09/01/16 at 09:00 Chlordiazepoxide (Librium) 50 mg TID NGT ; Start 09/01/16 at 09:00 Ferrous Sulfate (Feosol Liquid Cup) 300 mg BID NGT Last administered on 09:20; Admin Dose 300 MG; Start 09/01/16 at 09:00 Cholecalciferol (Vitamin D) 1,000 unit DAILY NGT Last administered on 09:20; Admin Dose 1,000 UNIT; Start 09/01/16 at 09:00 KATHIA DURAN Sep 01, 2016 09:40
[2016-09-01] MEDS: MULTIVITAMINS 10 ML, THIAMINE 100 MG, FOLIC ACID 1 MG in SOD CHLORIDE 0.9% 1,000 ML IVPB SCH (13:47)
[2016-09-01 14:52] LABS: POTASSIUM 3.5 mmol/L (3.5-5.1)
[2016-09-01 14:55] LABS: CREATININE 0.75 mg/dl (0.61-1.24)
[2016-09-01 14:56] LABS: CALCIUM 8.3 mg/dl (8.4-10.2)
[2016-09-01] MEDS: FENTAnyl (DRIP) 1000 mcg/100mL 100 ML IV SCH (19:06)
[2016-09-02] VITALS (54 sets, daily range): BP systolic 95–142; BP diastolic 48–92; PULSE 51–97; RESP 8–20
[2016-09-02] MEDS: MIDAZOLAM (DRIP) 50 mg/50 mL 50 ML IV SCH ×3 (00:44→22:33)
[2016-09-02 04:48] LABS: BASOPHIL # 0.1 10^3/ul (0.0-0.1); EOSINOPHILS # 0.7 10^3/ul (0.0-0.5); EOSINOPHILS % 7.8 % (0.0-7.0); HEMATOCRIT 32.6 % (42.0-52.0); LYMPHOCYTES # 2.4 10^3/ul (0.8-2.9); LYMPHOCYTES % 25.3 % (15.0-51.0); MEAN CORPUSCULAR HEMOGLOBIN 29.6 pg (29.0-33.0); MEAN CORPUSCULAR HGB CONC 33.8 g/dl (32.0-37.0); MEAN CORPUSCULAR VOLUME 87.5 fl (82.0-101.0); MEAN PLATELET VOLUME 8.9 fl (7.4-10.4); MONOCYTE # 0.7 10^3/ul (0.3-0.9); MONOCYTES % 7.8 % (0.0-11.0); NEUTROPHIL # 5.5 10^3/ul (1.6-7.5); NEUTROPHILS % 58.1 % (39.0-77.0); NUCLEATED RED BLOOD CELLS% 4.2 /100WBC (0.0-0.0); PLATELET COUNT 231 10^3/UL (140-440); RED BLOOD COUNT 3.73 10^6/ul (4.70-6.10); RED CELL DISTRIBUTION WIDTH 13.7 % (11.5-14.5); UNCORRECTED WBC 9.5 10^3/ul (4.8-10.8); WHITE BLOOD COUNT 9.5 10^3/ul (4.8-10.8)
[2016-09-02 04:58] LABS: POTASSIUM 3.4 mmol/L (3.5-5.1)
[2016-09-02 05:00] LABS: CREATININE 0.69 mg/dl (0.61-1.24)
[2016-09-02 05:02] LABS: PHOSPHORUS 3.2 mg/dl (2.5-4.9)
[2016-09-02 05:13] LABS: CONDITION 1; LH ANALYZER COMMENTS 1; NUCLEATED RED BLOOD CELLS # 0.4 10^3/ul (0.0-0.0); SUSPECT 1
[2016-09-02] MEDS: FENTAnyl (DRIP) 1000 mcg/100mL 100 ML IV SCH ×2 (05:57→23:17)
[2016-09-02] MEDS: DEXTROSE 5%-0.45% NACL 1,000 ML IV SCH ×3 (05:59→23:18)
[2016-09-02] MEDS: PIPER-TAZO 3.375 GM IV (PMX) 100 ML IVPB SCH (06:00)
[2016-09-02] MEDS ORDERED: POTASSIUM CHLORIDE 250 ML IVPB ONE (07:00)
[2016-09-02] MEDS ORDERED: POTASSIUM CHLORIDE 250 ML IVPB SCH (07:30)
--- NOTE | 2016-09-02 07:33 | RADRPT ---
PROCEDURE: XR Chest. CLINICAL INDICATION: Pneumonia TECHNIQUE: A single AP view of the chest was obtained. COMPARISON: Chest x-ray dated 08/31/2016 FINDINGS: The endotracheal tube tip is approximately 3.4 cm above the llyod. The tip of the enteric tube ex tends below the left diaphragm. There are bibasilar interstitial opacities with small bilateral pleural effusions. No pneumothorax is seen. The cardiomediastinal silhouette is within normal limits for size. The osseous structures are unremarkable. IMPRESSION: 1. Small bilateral pleural effusions with bibasilar atelectasis versus pneumonitis. The size of th e pleural effusions is mildly increased when compared to the prior examination. Otherwise, no signi ficant interval change. 2. Tubes and lines, as described above. RPTAT: HH .Patria Queen MD, MD Date Time Electronically viewed and signed by .Patria Queen MD, on 09/02/2016 07:33 .G/
--- NOTE | 2016-09-02 08:27 | PN ---
Date/Time of Note Date/Time of Note DATE: 09/02/16 TIME: 08:24 Assessment/Plan VTE Prophylaxis VTE Prophylaxis Intervention: LMWH Lines/Catheters IV [facility] Type (from [facility]): Peripheral IV Urinary Cath still in place: Yes Reason Cath still needed: other (indicate) Assessment/Plan Chief Complaint/Hosp Course 1. Alcohol intoxication. The patient currently on a daily banana bag. The patient on a Versed drip. The patient also on a tapering dose of Librium. 2. Acute hypoxic respiratory failure secondary to alcohol intoxication. The patient currently on a mechanical ventilator. Ventilator weaning as per pulmonary. 3. Sepsis secondary to aspiration pneumonia. Continue antibiotics. No evidence of any septic shock. 4. Normocytic normochromic anemia. Will monitor the H and H closely. Iron panel showing iron deficiency. Continue iron supplements. 5. Vitamin D deficiency. Continue vitamin D supplements. 6. Fluid, electrolytes and nutrition. The patient currently n.p.o. Continue IV fluids. 7. DVT prophylaxis, subcutaneous Lovenox. 8. Gastrointestinal prophylaxis. Histamine 2 receptor blockers. 9. Plan. Ventilator weaning as per pulmonary. Replete potassium. Case discussed with Dr. Badillo. Critical Care time: 35 minutes. Problems: Subjective 24 Hr Interval Summary Free Text/Dictation Patient remains intubated. Exam/Review of Systems Vital Signs Vitals Vital Signs Date Time Temp Pulse Resp B/P Pulse Ox O2 Delivery O2 Flow Rate FiO2 09/02/16 06:30 54 14 100/69 97 09/02/16 06:00 Mechanical Ventilator 09/02/16 05:18 30 09/02/16 04:00 98.2 Intake and Output 09/01/16 09/01/16 09/02/16 14:59 22:59 06:59 Intake Total 1128 ml 1008.5 ml 1245 ml Output Total 3250 ml 1240 ml 715 ml Balance -2122 ml -231.5 ml 530 ml Exam GENERAL: This is a slightly overweight male lying in bed, orally intubated and mechanically ventilated. HEENT: Head normocephalic and atraumatic. Eyes: Anicteric sclerae. Conjunctivae clear. ENT: Nasal septum is midline. Oral mucosa is dry. Orally intubated. NECK: Supple. No JVD noticed. RESPIRATORY: Bilaterally diminished breath sounds. Mechanically ventilated. On AC mode ventilation. Diminished breath sounds. CARDIAC: Regular rate and rhythm. No obvious murmurs heard. ABDOMEN: Soft, nontender and nondistended. Bowel sounds positive in all 4 quadrants. GENITOURINARY: The patient has a Carrillo catheter in place. EXTREMITIES: No cyanosis, no clubbing, no edema. Peripheral pulses are palpable. NEUROLOGIC: The patient is weaning off sedation. Follows simple commands. Results Result Diagram: 09/02/16 0434 09/02/16 0434 Results 24 hrs Laboratory Tests Test 09/01/16 14:11 09/01/16 14:28 09/02/16 04:34 Bedside Glucose 95 Anion Gap 12 10 Blood Urea Nitrogen 4 L 4 L Calcium Level 8.3 L 8.0 L Carbon Dioxide Level 28 26 Chloride Level 109 109 Creatinine 0.75 0.69 Glucose Level 105 103 Potassium Level 3.5 3.4 L Sodium Level 145 H 142 Basophils # 0.1 Basophils % 1.0 Eosinophils # 0.7 H Eosinophils % 7.8 H Hematocrit 32.6 L Hemoglobin 11.0 L Lymphocytes # 2.4 Lymphocytes % 25.3 Magnesium Level 2.0 Mean Corpuscular Hemoglobin 29.6 Mean Corpuscular Hemoglobin Concent 33.8 Mean Corpuscular Volume 87.5 Mean Platelet Volume 8.9 Monocytes # 0.7 Monocytes % 7.8 Neutrophils # 5.5 Neutrophils % 58.1 Nucleated Red Blood Cells # 0.4 H Nucleated Red Blood Cells % 4.2 H Phosphorus Level 3.2 Platelet Count 231 Red Blood Count 3.73 L Red Cell Distribution Width 13.7 White Blood Count 9.5 # Medications Medications Current Medications Dextrose/Sodium Chloride (D5-1/2ns) 1,000 ml @ 125 mls/hr Q8H IV Last administered on 09/02/16t 05:59; Admin Dose 125 MLS/HR; Start 08/30/16 at 06:30 Ondansetron HCl (Zofran Inj) 4 mg Q6H PRN IV NAUSEA AND/OR VOMITING; Start at 06:30 Acetaminophen (Tylenol Liquid) 650 mg Q6H PRN PO PAIN LEVEL 1-3 OR FEVER; Start 08/30/16 at 06:30 Acetaminophen (Tylenol Supp) 650 mg Q4H PRN [place] PAIN LEVEL 1-3 OR FEVER; Start 08/30/16 at 06:30 Lorazepam (Ativan) 2 mg Q1H PRN IV alcohol withdrawal Last administered on 08/30 18:32; Admin Dose 2 MG; Start 08/30/16 at 06:30 Famotidine 20 mg 20 mg Q12 IV Last administered on 09/01/16 20:37; Admin Dose 20 MG; Start 08/30/16 at 09:00 Multivitamins 10 ml/Thiamine HCl 100 mg/Folic Acid 1 mg/Sodium Chloride 1,011.2 ml @ 125 mls/ hr DAILY@09 IVPB Last administered on 09/01/16 13:47; Admin Dose 125 MLS/HR; Start 08/30/16 at 09:00; Stop 09/02/16 at 11:00 Fentanyl 100 ml @ 2.5 mls/hr TITRATE IV Last administered on 09/02/16 05:57; Admin Dose 8 MLS/HR; Start 08/31/16 at 02:30 Piperacillin Sod/ Tazobactam Sod (Zosyn 3.375gm/ 100 ml (Pmx)) 100 ml @ 200 mls /hr Q8 IVPB Last administered on 09/02/16 06:00; Admin Dose 200 MLS/HR; Start 08/31/16 at 14:00 Enoxaparin Sodium (Lovenox) 30 mg DAILY SC Last administered on 09/01/16 08:13 ; Admin Dose 30 MG; Start 09/01/16 at 09:00 Chlordiazepoxide (Librium) 50 mg TID NGT Last administered on 09/01/16 20:36; Admin Dose 50 MG; Start 09/01/16 at 09:00 Ferrous Sulfate (Feosol Liquid Cup) 300 mg BID NGT Last administered on 20:36; Admin Dose 300 MG; Start 09/01/16 at 09:00 Cholecalciferol 1000 unit 1,000 unit DAILY NGT Last administered on 09/01/16 09:20; Admin Dose 1,000 UNIT; Start 09/01/16 at 09:00 Potassium Chloride (KCl 40 MEQ/250 ML NS) 250 ml @ 62.5 mls/hr ONCE IVPB ; Start 09/02/16 at 07:30; Stop 09/02/16 at 11:29 FRANKLYN PENA NP Sep 02, 2016 08:27
[2016-09-02] MEDS: FAMOTIDINE 20 MG INJ IV SCH ×2 (08:28→21:00)
[2016-09-02] MEDS: CHLORDIAZEPOXIDE 25 MG CAP NGT SCH ×3 (08:28→20:54)
--- NOTE | 2016-09-02 08:52 | CONS ---
Date/Time of Note Date/Time of Note DATE: 09/02/16 TIME: 08:49 Assessment/Plan Assessment/Plan Additional Assessment/Plan Ventilator settings; AC of 14, tidal volume 500, PEEP of 5, 30% FiO2. Assessment recommendations; 1. Vision admitted with acute alcohol intoxication leading to respiratory failure. 2. Some element of aspiration pneumonia. 3. Chest x-ray from today showing minimal basilar atelectasis. L4 sedation again. Once the patient is off sedative effect, he will be evaluated for extubation. Consultation Date/Type/Reason Admit Date/Time Aug 30, 2016 at 05:37 Initial Consult Date 08/31/16 Type of Consultation: Pulmonary/critical care 24 HR Interval Summary Free Text/Dictation Patient condition remains critical. However the patient has improved overall significantly. Still on the ventilator via endotracheal tube. Despite being on sedation, patient is completely awake and alert. Patient was given a sedation vacation yesterday, however he could not tolerate it and had to be re- sedated. General examination; young male, orally intubated, currently in no distress. Awake and alert. Exam/Review of Systems Vital Signs Vitals Vital Signs Date Time Temp Pulse Resp B/P Pulse Ox O2 Delivery O2 Flow Rate FiO2 09/02/16 08:30 72 14 98 30 09/02/16 06:30 100/69 09/02/16 06:00 Mechanical Ventilator 09/02/16 04:00 98.2 Intake and Output 09/01/16 09/01/16 09/02/16 14:59 22:59 06:59 Intake Total 1128 ml 1008.5 ml 1245 ml Output Total 3250 ml 1240 ml 715 ml Balance -2122 ml -231.5 ml 530 ml Exam HEENT examination; supple neck, no JVD. No lymphadenopathy. Orally intubated. Pupils are midsize and reactive to light. No neck masses. No thyromegaly. Chest examination; clear to auscultation bilaterally. S1-S2 audible, no murmurs. Regular rhythm. Abdomen examination; soft, nontender. No organomegaly. Bowel sounds audible. Extremity examination; no peripheral edema. Pulses 1+ bilaterally. PARASITOLOGY TEACHER examination; no focal deficit. Results Result Diagram: 09/02/16 0434 09/02/16 0434 Results 24 hrs Laboratory Tests Test 09/01/16 14:11 09/01/16 14:28 09/02/16 04:34 Bedside Glucose 95 Anion Gap 12 10 Blood Urea Nitrogen 4 L 4 L Calcium Level 8.3 L 8.0 L Carbon Dioxide Level 28 26 Chloride Level 109 109 Creatinine 0.75 0.69 Glucose Level 105 103 Potassium Level 3.5 3.4 L Sodium Level 145 H 142 Basophils # 0.1 Basophils % 1.0 Eosinophils # 0.7 H Eosinophils % 7.8 H Hematocrit 32.6 L Hemoglobin 11.0 L Lymphocytes # 2.4 Lymphocytes % 25.3 Magnesium Level 2.0 Mean Corpuscular Hemoglobin 29.6 Mean Corpuscular Hemoglobin Concent 33.8 Mean Corpuscular Volume 87.5 Mean Platelet Volume 8.9 Monocytes # 0.7 Monocytes % 7.8 Neutrophils # 5.5 Neutrophils % 58.1 Nucleated Red Blood Cells # 0.4 H Nucleated Red Blood Cells % 4.2 H Phosphorus Level 3.2 Platelet Count 231 Red Blood Count 3.73 L Red Cell Distribution Width 13.7 White Blood Count 9.5 # Medications Medications Current Medications Dextrose/Sodium Chloride (D5-1/2ns) 1,000 ml @ 125 mls/hr Q8H IV Last administered on 09/02/16 05:59; Admin Dose 125 MLS/HR; Start 08/30/16 at 06:30 Ondansetron HCl (Zofran Inj) 4 mg Q6H PRN IV NAUSEA AND/OR VOMITING; Start at 06:30 Acetaminophen (Tylenol Liquid) 650 mg Q6H PRN PO PAIN LEVEL 1-3 OR FEVER; Start 08/30/16 at 06:30 Acetaminophen (Tylenol Supp) 650 mg Q4H PRN [place] PAIN LEVEL 1-3 OR FEVER; Start 08/30/16 at 06:30 Lorazepam (Ativan) 2 mg Q1H PRN IV alcohol withdrawal Last administered on 08/30 18:32; Admin Dose 2 MG; Start 08/30/16 at 06:30 Famotidine 20 mg 20 mg Q12 IV Last administered on 09/02/16 08:28; Admin Dose 20 MG; Start 08/30/16 at 09:00 Multivitamins 10 ml/Thiamine HCl 100 mg/Folic Acid 1 mg/Sodium Chloride 1,011.2 ml @ 125 mls/ hr DAILY@09 IVPB Last administered on 09/01/16 13:47; Admin Dose 125 MLS/HR; Start 08/30/16 at 09:00; Stop 09/02/16 at 11:00 Fentanyl (Sublimaze) 100 ml @ 2.5 mls/hr TITRATE IV Last administered on 05:57; Admin Dose 8 MLS/HR; Start 08/31/16 at 02:30 Enoxaparin Sodium (Lovenox) 30 mg DAILY SC Last administered on 09/01/16 08:13 ; Admin Dose 30 MG; Start 09/01/16 at 09:00 Chlordiazepoxide (Librium) 50 mg TID NGT Last administered on 09/02/16 08:28; Admin Dose 50 MG; Start 09/01/16 at 09:00 Ferrous Sulfate (Feosol Liquid Cup) 300 mg BID NGT Last administered on 20:36; Admin Dose 300 MG; Start 09/01/16 at 09:00 Cholecalciferol 1000 unit 1,000 unit DAILY NGT Last administered on 09/01/16 09:20; Admin Dose 1,000 UNIT; Start 09/01/16 at 09:00 Potassium Chloride 250 ml @ 62.5 mls/hr ONCE IVPB Last administered on 08:00; Admin Dose 62.5 MLS/HR; Start 09/02/16 at 07:30; Stop 09/02/16 at 11 :29 Levofloxacin/ Dextrose (Levaquin 500mg/ D5W 100 ml (Pmx)) 100 ml @ 100 mls/hr Q24H IVPB ; Start 09/02/16 at 08:30 KATHIA DURAN Sep 02, 2016 08:52
[2016-09-02] MEDS: FERROUS SULFATE 60 MG/ML 5ML CUP NGT SCH ×2 (09:32→20:54)
[2016-09-02] MEDS: CHOLECALCIFEROL 1,000 UNIT TAB NGT SCH (09:33)
[2016-09-02] MEDS: ENOXAPARIN 30 MG/0.3 ML SYG SC SCH (09:44)
[2016-09-02] MEDS: LEVOFLOXACIN 500MG/D5W (PMX) 100 ML IVPB SCH (10:03)
[2016-09-02] MEDS: MULTIVITAMINS 10 ML, THIAMINE 100 MG, FOLIC ACID 1 MG in SOD CHLORIDE 0.9% 1,000 ML IVPB SCH (15:30)
[2016-09-03] VITALS (51 sets, daily range): BP systolic 95–131; BP diastolic 55–87; PULSE 57–96; RESP 5–25
[2016-09-03] MEDS: MIDAZOLAM (DRIP) 50 mg/50 mL 50 ML IV SCH ×2 (05:49→14:27)
[2016-09-03] MEDS: DEXTROSE 5%-0.45% NACL 1,000 ML IV SCH ×3 (05:49→22:30)
[2016-09-03 06:35] LABS: POTASSIUM 3.5 mmol/L (3.5-5.1)
[2016-09-03 06:37] LABS: CREATININE 0.7 mg/dl (0.61-1.24); MAGNESIUM 1.8 mg/dl (1.7-2.5); PHOSPHORUS 4.2 mg/dl (2.5-4.9)
[2016-09-03 06:38] LABS: CALCIUM 8.2 mg/dl (8.4-10.2)
--- NOTE | 2016-09-03 06:53 | RADRPT ---
PROCEDURE: XR Chest. CLINICAL INDICATION: Shortness of breath TECHNIQUE: A single AP view of the chest was obtained. COMPARISON: Chest x-ray dated 09/02/2016 FINDINGS: The endotracheal tube tip is approximately 4.8 cm above the lloyd. The tip of the enteric tube ex tends below the left diaphragm. There are small bilateral pleural effusions with bibasilar interstitial opacities. No pneumothorax is seen. The cardiomediastinal silhouette is within normal limits for size. The osseous structures are unremarkable. IMPRESSION: 1. Small bilateral pleural effusions with bibasilar atelectasis versus pneumonia. No significant i nterval change. 2. Tubes and lines, as described above. RPTAT: HH .Patria Queen MD, Date Time Electronically viewed and signed by .Patria Queen MD, on 09/03/2016 06:53 .G/
[2016-09-03 07:07] LABS: BASOPHILS % 0.6 % (0.0-2.0); EOSINOPHILS # 0.5 10^3/ul (0.0-0.5); EOSINOPHILS % 7.3 % (0.0-7.0); HEMATOCRIT 30.4 % (42.0-52.0); LYMPHOCYTES # 1.8 10^3/ul (0.8-2.9); LYMPHOCYTES % 25.8 % (15.0-51.0); MEAN CORPUSCULAR HEMOGLOBIN 29.2 pg (29.0-33.0); MEAN CORPUSCULAR HGB CONC 32.9 g/dl (32.0-37.0); MEAN CORPUSCULAR VOLUME 88.6 fl (82.0-101.0); MEAN PLATELET VOLUME 10.1 fl (7.4-10.4); MONOCYTE # 0.6 10^3/ul (0.3-0.9); MONOCYTES % 7.7 % (0.0-11.0); NEUTROPHIL # 4.1 10^3/ul (1.6-7.5); NEUTROPHILS % 58.3 % (39.0-77.0); PLATELET COUNT 301 10^3/UL (140-440); RED BLOOD COUNT 3.43 10^6/ul (4.70-6.10); RED CELL DISTRIBUTION WIDTH 13.3 % (11.5-14.5); WHITE BLOOD COUNT 7.1 10^3/ul (4.8-10.8)
[2016-09-03] MEDS: FERROUS SULFATE 60 MG/ML 5ML CUP NGT SCH ×2 (08:18→20:29)
[2016-09-03] MEDS: CHLORDIAZEPOXIDE 25 MG CAP NGT SCH ×3 (08:18→20:29)
[2016-09-03] MEDS: CHOLECALCIFEROL 1,000 UNIT TAB NGT SCH (08:18)
[2016-09-03] MEDS: FAMOTIDINE 20 MG INJ IV SCH ×2 (08:18→20:29)
[2016-09-03] MEDS: LEVOFLOXACIN 500MG/D5W (PMX) 100 ML IVPB SCH (08:18)
[2016-09-03] MEDS: ENOXAPARIN 30 MG/0.3 ML SYG SC SCH (08:19)
--- NOTE | 2016-09-03 08:50 | PN ---
Date/Time of Note Date/Time of Note DATE: 09/03/16 TIME: 08:44 Assessment/Plan VTE Prophylaxis VTE Prophylaxis Intervention: LMWH Lines/Catheters IV [facility]ter Type (from [facility]): Peripheral IV Urinary Cath still in place: Yes Reason Cath still needed: other (indicate) Assessment/Plan Chief Complaint/Hosp Course 1. Alcohol intoxication. The patient currently on a daily banana bag. The patient on a Versed drip. The patient also on a tapering dose of Librium. 2. Acute hypoxic respiratory failure secondary to alcohol intoxication. The patient currently on a mechanical ventilator. Ventilator weaning as per pulmonary. 3. Sepsis secondary to aspiration pneumonia. Continue antibiotics. No evidence of any septic shock. 4. Normocytic normochromic anemia. Will monitor the H and H closely. Iron panel showing iron deficiency. Continue iron supplements. 5. Vitamin D deficiency. Continue vitamin D supplements. 6. Fluid, electrolytes and nutrition. The patient currently n.p.o. Continue IV fluids. 7. DVT prophylaxis, subcutaneous Lovenox. 8. Gastrointestinal prophylaxis. Histamine 2 receptor blockers. 9. Plan. Ventilator weaning as per pulmonary. Start the patient on tube feedings if unable to wean off the ventilator. Case discussed with Dr. Badillo. Critical Care time: 35 minutes. Problems: Subjective 24 Hr Interval Summary Free Text/Dictation The patient remains intubated. Exam/Review of Systems Vital Signs Vitals Vital Signs Date Time Temp Pulse Resp B/P Pulse Ox O2 Delivery O2 Flow Rate FiO2 09/03/16 07:30 62 14 96 30 09/03/16 06:30 102/60 09/03/16 06:00 Mechanical Ventilator 09/03/16 04:00 99.9 Intake and Output 09/02/16 09/02/16 09/03/16 15:00 23:00 07:00 Intake Total 476 ml 1729 ml 970 ml Output Total 1465 ml 1180 ml 620 ml Balance -989 ml 549 ml 350 ml Exam GENERAL: This is a slightly overweight male lying in bed, orally intubated and mechanically ventilated. HEENT: Head normocephalic and atraumatic. Eyes: Anicteric sclerae. Conjunctivae clear. ENT: Nasal septum is midline. Oral mucosa is dry. Orally intubated. NECK: Supple. No JVD noticed. RESPIRATORY: Bilaterally diminished breath sounds. Mechanically ventilated. On AC mode ventilation. Diminished breath sounds. CARDIAC: Regular rate and rhythm. No obvious murmurs heard. ABDOMEN: Soft, nontender and nondistended. Bowel sounds positive in all 4 quadrants. GENITOURINARY: The patient has a Carrillo catheter in place. EXTREMITIES: No cyanosis, no clubbing, no edema. Peripheral pulses are palpable. NEUROLOGIC: The patient is currently sedated. Results Result Diagram: 09/03/16 0540 09/03/16 0540 Results 24 hrs Laboratory Tests Test 09/03/16 05:40 Anion Gap 12 Basophils # 0.0 Basophils % 0.6 Blood Urea Nitrogen 4 L Calcium Level 8.2 L Carbon Dioxide Level 28 Chloride Level 106 Creatinine 0.70 Eosinophils # 0.5 Eosinophils % 7.3 H Glucose Level 96 Hematocrit 30.4 L Hemoglobin 10.0 L Lymphocytes # 1.8 Lymphocytes % 25.8 Magnesium Level 1.8 Mean Corpuscular Hemoglobin 29.2 Mean Corpuscular Hemoglobin Concent 32.9 Mean Corpuscular Volume 88.6 Mean Platelet Volume 10.1 Monocytes # 0.6 Monocytes % 7.7 Neutrophils # 4.1 Neutrophils % 58.3 Nucleated Red Blood Cells # 0.0 Nucleated Red Blood Cells % 0.0 Phosphorus Level 4.2 Platelet Count 301 # Potassium Level 3.5 Red Blood Count 3.43 L Red Cell Distribution Width 13.3 Sodium Level 142 White Blood Count 7.1 # Medications Medications Current Medications Dextrose/Sodium Chloride (D5-1/2ns) 1,000 ml @ 125 mls/hr Q8H IV Last administered on 09/03/16 05:49; Admin Dose 125 MLS/HR; Start 08/30/16 at 06:30 Ondansetron HCl (Zofran Inj) 4 mg Q6H PRN IV NAUSEA AND/OR VOMITING Last administered on 09/02/16 13:25; Admin Dose 4 MG; Start 08/30/16 at 06:30 Acetaminophen (Tylenol Liquid) 650 mg Q6H PRN PO PAIN LEVEL 1-3 OR FEVER; Start 08/30/16 at 06:30 Acetaminophen (Tylenol Supp) 650 mg Q4H PRN [place] PAIN LEVEL 1-3 OR FEVER; Start 08/30/16 at 06:30 Lorazepam (Ativan) 2 mg Q1H PRN IV alcohol withdrawal Last administered on 2/19 /17at 18:32; Admin Dose 2 MG; Start 08/30/16 at 06:30 Famotidine 20 mg 20 mg Q12 IV Last administered on 09/03/16 08:18; Admin Dose 20 MG; Start 08/30/16 at 09:00 Fentanyl (Sublimaze) 100 ml @ 2.5 mls/hr TITRATE IV Last administered on 23:17; Admin Dose 8 MLS/HR; Start 08/31/16 at 02:30 Enoxaparin Sodium (Lovenox) 30 mg DAILY SC Last administered on 09/03/16 08:19 ; Admin Dose 30 MG; Start 09/01/16 at 09:00 Chlordiazepoxide (Librium) 50 mg TID NGT Last administered on 09/03/16 08:18; Admin Dose 50 MG; Start 09/01/16 at 09:00 Ferrous Sulfate (Feosol Liquid Cup) 300 mg BID NGT Last administered on 08:18; Admin Dose 300 MG; Start 09/01/16 at 09:00 Cholecalciferol 1000 unit 1,000 unit DAILY NGT Last administered on 09/03/16 08:18; Admin Dose 1,000 UNIT; Start 09/01/16 at 09:00 Levofloxacin/ Dextrose (Levaquin 500mg/ D5W 100 ml (Pmx)) 100 ml @ 100 mls/hr Q24H IVPB Last administered on 09/03/16 08:18; Admin Dose 100 MLS/HR; Start at 08:30 FRANKLYN PENA NP Sep 03, 2016 08:49
--- NOTE | 2016-09-03 10:12 | CONS ---
Date/Time of Note Date/Time of Note DATE: 09/03/16 TIME: 10:06 Assessment/Plan Assessment/Plan Additional Assessment/Plan Ventilator settings; assist control of 14, tidal volume 500, PEEP of 5, 30% FiO2. Assessment and recommendation; 1. Patient admitted with alcohol withdrawal had to be intubated for airway protection. 2. Possibly some element of aspiration pneumonia. 3. Bibasilar mild atelectasis. 4. Patient unable to be weaned off from mechanical ventilation due to agitation from withdrawal behavior. Stop sedation again. Once the patient is off sedative effect, his mental status will be evaluated. Weaning from mechanical ventilation will depend upon adequate mental status recovery. Meanwhile continue supportive care. Give Lasix 40 mg IV 1 now. Consultation Date/Type/Reason Admit Date/Time Aug 30, 2016 at 05:37 Initial Consult Date 08/31/16 Type of Consultation: Pulmonary/critical care 24 HR Interval Summary Free Text/Dictation Patient's condition remains critical. Patient was again given a sedation vacation yesterday afternoon he became agitated had to be re-sedated. Despite being on combination fentanyl and Versed drips the patient is still quite awake. Next General examination; young male, orally intubated, awake currently in no distress. Exam/Review of Systems Vital Signs Vitals Vital Signs Date Time Temp Pulse Resp B/P Pulse Ox O2 Delivery O2 Flow Rate FiO2 09/03/16 09:00 64 14 108/69 97 Mechanical Ventilator 09/03/16 08:00 98.8 09/03/16 08:00 30 Intake and Output 09/02/16 09/02/16 09/03/16 15:00 23:00 07:00 Intake Total 476 ml 1729 ml 970 ml Output Total 1465 ml 1180 ml 620 ml Balance -989 ml 549 ml 350 ml Exam H EENT examination; supple neck, no JVD. No lymphadenopathy. Pupils are midsize and reactive to light. Orally intubated. Chest examination; minimally decreased breath sounds lung bases bilaterally. Upper lobes are clear. S1-S2 audible, no murmurs. Regular rhythm. Abdomen examination; soft, nondistended. No organomegaly. Bowel sounds audible. Extremity examination; no peripheral edema. Pulses 2+ bilaterally. URGENT CARE PHYSICIAN examination; patient is awake and moves all 4 extremities. Results Result Diagram: 09/03/1640 09/03/16539 Results 24 hrs Laboratory Tests Test 09/03/16 05:40 Anion Gap 12 Basophils # 0.0 Basophils % 0.6 Blood Urea Nitrogen 4 L Calcium Level 8.2 L Carbon Dioxide Level 28 Chloride Level 106 Creatinine 0.70 Eosinophils # 0.5 Eosinophils % 7.3 H Glucose Level 96 Hematocrit 30.4 L Hemoglobin 10.0 L Lymphocytes # 1.8 Lymphocytes % 25.8 Magnesium Level 1.8 Mean Corpuscular Hemoglobin 29.2 Mean Corpuscular Hemoglobin Concent 32.9 Mean Corpuscular Volume 88.6 Mean Platelet Volume 10.1 Monocytes # 0.6 Monocytes % 7.7 Neutrophils # 4.1 Neutrophils % 58.3 Nucleated Red Blood Cells # 0.0 Nucleated Red Blood Cells % 0.0 Phosphorus Level 4.2 Platelet Count 301 # Potassium Level 3.5 Red Blood Count 3.43 L Red Cell Distribution Width 13.3 Sodium Level 142 White Blood Count 7.1 # Medications Medications Current Medications Dextrose/Sodium Chloride (D5-1/2ns) 1,000 ml @ 125 mls/hr Q8H IV Last administered on 09/03/16 05:49; Admin Dose 125 MLS/HR; Start 08/30/16 at 06:30 Ondansetron HCl (Zofran Inj) 4 mg Q6H PRN IV NAUSEA AND/OR VOMITING Last administered on 09/02/16 13:25; Admin Dose 4 MG; Start 08/30/16 at 06:30 Acetaminophen (Tylenol Liquid) 650 mg Q6H PRN PO PAIN LEVEL 1-3 OR FEVER; Start 08/30/16 at 06:30 Acetaminophen (Tylenol Supp) 650 mg Q4H PRN [place] PAIN LEVEL 1-3 OR FEVER; Start 08/30/16 at 06:30 Lorazepam (Ativan) 2 mg Q1H PRN IV alcohol withdrawal Last administered on 08/30 18:32; Admin Dose 2 MG; Start 08/30/16 at 06:30 Famotidine 20 mg 20 mg Q12 IV Last administered on 09/03/16 08:18; Admin Dose 20 MG; Start 08/30/16 at 09:00 Fentanyl (Sublimaze) 100 ml @ 2.5 mls/hr TITRATE IV Last administered on 23:17; Admin Dose 8 MLS/HR; Start 08/31/16 at 02:30 Enoxaparin Sodium (Lovenox) 30 mg DAILY SC Last administered on 09/03/16 08:19 ; Admin Dose 30 MG; Start 09/01/16 at 09:00 Chlordiazepoxide (Librium) 50 mg TID NGT Last administered on 09/03/16 08:18; Admin Dose 50 MG; Start 09/01/16 at 09:00 Ferrous Sulfate (Feosol Liquid Cup) 300 mg BID NGT Last administered on 08:18; Admin Dose 300 MG; Start 09/01/16 at 09:00 Cholecalciferol 1000 unit 1,000 unit DAILY NGT Last administered on 09/03/16 08:18; Admin Dose 1,000 UNIT; Start 09/01/16 at 09:00 Levofloxacin/ Dextrose (Levaquin 500mg/ D5W 100 ml (Pmx)) 100 ml @ 100 mls/hr Q24H IVPB Last administered on 09/03/16 08:18; Admin Dose 100 MLS/HR; Start at 08:30 KATHIA DURAN Sep 03, 2016 10:12
[2016-09-03] MEDS ORDERED: FUROSEMIDE 40 MG INJ IV ONE (10:30)
[2016-09-03] MEDS: FENTAnyl (DRIP) 1000 mcg/100mL 100 ML IV SCH (13:06)
[2016-09-03 17:25] LABS: AADO2 Arterial 95.3 mmHg (7.0-24.0); Allen Test ACCEPTAB; Arterial Base Excess 4.2 mmol/L (-3.0-3); Arterial COHb 0.3 % (0.0-3.0); Arterial Fraction of Oxyhgb 92.4 % (93.0-99.0); Arterial HCO3 29.1 mmol/L (22.0-26.0); Arterial MetHb 0.3 % (0.0-1.5); Arterial Total Hemglobin 12.1 g/dl (12.0-18.0); MODE VENT - CPAP
[2016-09-03] MEDS: LORAZEPAM 2 MG INJ IV PRN (23:26)
[2016-09-04] VITALS (42 sets, daily range): BP systolic 82–130; BP diastolic 47–78; PULSE 60–95; RESP 9–27
[2016-09-04] MEDS: DEXTROSE 5%-0.45% NACL 1,000 ML IV SCH ×2 (05:24→08:00)
[2016-09-04 06:53] LABS: ADD SCAN DIFF NO; BASOPHILS % 0.4 % (0.0-2.0); EOSINOPHILS # 0.4 10^3/ul (0.0-0.5); EOSINOPHILS % 4.7 % (0.0-7.0); HEMATOCRIT 33.9 % (42.0-52.0); LYMPHOCYTES # 1.4 10^3/ul (0.8-2.9); LYMPHOCYTES % 16.6 % (15.0-51.0); MEAN CORPUSCULAR HEMOGLOBIN 28.9 pg (29.0-33.0); MEAN CORPUSCULAR HGB CONC 32.4 g/dl (32.0-37.0); MEAN CORPUSCULAR VOLUME 89.2 fl (82.0-101.0); MEAN PLATELET VOLUME 9.9 fl (7.4-10.4); MONOCYTE # 0.6 10^3/ul (0.3-0.9); MONOCYTES % 7.4 % (0.0-11.0); NEUTROPHIL # 5.9 10^3/ul (1.6-7.5); NEUTROPHILS % 70.4 % (39.0-77.0); PLATELET COUNT 351 10^3/UL (140-415); RED CELL DISTRIBUTION WIDTH 13.2 % (11.5-14.5); WHITE BLOOD COUNT 8.4 10^3/ul (4.8-10.8)
[2016-09-04 06:55] LABS: PHOSPHORUS 5.1 mg/dl (2.5-4.9)
[2016-09-04 06:57] LABS: POTASSIUM 3.8 mmol/L (3.5-5.1)
[2016-09-04 07:00] LABS: CREATININE 0.73 mg/dl (0.61-1.24)
[2016-09-04 07:01] LABS: CALCIUM 8.6 mg/dl (8.4-10.2)
--- NOTE | 2016-09-04 09:22 | CONS ---
Date/Time of Note Date/Time of Note DATE: 09/04/16 TIME: 09:18 Assessment/Plan Assessment/Plan Additional Assessment/Plan Ventilator settings; SIMV of 6, tidal volume of 500, PEEP of 5, 30% FiO2, pressure support of 10. Assessment and recommendations; 1. Patient admitted with alcohol intoxication had to be intubated for airway protection. 2. Some element of pneumonia. 3. Mild pulmonary edema. Patient given Lasix yesterday 1. 4. Unable to be weaned from ventilator due to drug withdrawal effect , however patient's clinical condition today is markedly improved. Continue current supportive care. Sedation has again be stopped now and the patient switched over to CPAP mode. Once the patient does well on CPAP mode for the next 30 minutes, he will be extubated. Consultation Date/Type/Reason Admit Date/Time Aug 30, 2016 at 05:37 Initial Consult Date 08/31/16 Type of Consultation: Pulmonary/critical care 24 HR Interval Summary Free Text/Dictation Patient condition is critical. Patient was again given a sedation vacation yesterday evening however he again became agitated at the very sedated. Sedation now again has been stopped and the patient is exhibiting significantly improved mental status. He is awake, alert, follows commands, General examination; young male, orally intubated, currently in no distress. Awake and alert. Exam/Review of Systems Vital Signs Vitals Vital Signs Date Time Temp Pulse Resp B/P Pulse Ox O2 Delivery O2 Flow Rate FiO2 09/04/16 08:38 65 10 98 30 09/04/16 08:30 88/50 09/04/16 08:00 98.6 Mechanical Ventilator Intake and Output 09/03/16 09/03/16 09/04/16 15:00 23:00 07:00 Intake Total 380 ml 1855 ml 967.5 ml Output Total 2985 ml 1145 ml 850 ml Balance -2605 ml 710 ml 117.5 ml Exam H EENT examination; supple neck, no JVD. No lymphadenopathy. Orally intubated. Pupils are midsize and reactive to light. No neck masses. Chest examination; clear to auscultation bilaterally. S1-S2 audible, no murmurs. Regular rhythm. Abdomen examination; soft, nondistended. No organomegaly. Bowel sounds audible. Nontender. Extremity examination; no peripheral edema. JEWEL BEARING FACER examination; patient follows simple commands moves all 4 extremities. Results Result Diagram: 09/04/16 0520 09/04/16 0520 Results 24 hrs Laboratory Tests Test 09/03/16 17:00 09/04/16 05:20 09/04/16 05:26 Arterial Blood HCO3 29.1 H Arterial Blood Base Excess 4.2 H Arterial Blood Oxygen Saturation 93.0 L Bryan Test ACCEPTAB Arterial Blood Gas Puncture Site Right Radial Arterial Blood Carboxyhemoglobin 0.3 Arterial Blood Date Drawn 09/03/2016 5:15:42 PM Arterial Blood Methemoglobin 0.3 Arterial Blood pCO2 (Temp correct) 44.7 Arterial Blood pH (Temp corrected) 7.431 Arterial Blood pO2 (Temp corrected) 66.1 L Blood Gas A-a O2 Differential 95.3 H Blood Gas Actual Respiration Rate 17 Blood Gas Modality VENT - CPAP Blood Gas Notified Time 09/03/2016 5:25:15 PM Blood Gas Notified Whom CW Blood Gas Specimen Source Blood arterial Blood Gas Temperature 37.0 Blood Gas Tidal Volume 476.0 FiO2 30.0 Oxyhemoglobin Percent 92.4 L Total Hemoglobin 12.1 Anion Gap 13 Basophils # 0.0 Basophils % 0.4 Blood Urea Nitrogen 6 L Calcium Level 8.6 Carbon Dioxide Level 30 Chloride Level 104 Creatinine 0.73 Eosinophils # 0.4 Eosinophils % 4.7 Glucose Level 113 Hematocrit 33.9 L Hemoglobin 11.0 L Lymphocytes # 1.4 Lymphocytes % 16.6 Mean Corpuscular Hemoglobin 28.9 L Mean Corpuscular Hemoglobin Concent 32.4 Mean Corpuscular Volume 89.2 Mean Platelet Volume 9.9 Monocytes # 0.6 Monocytes % 7.4 Neutrophils # 5.9 Neutrophils % 70.4 Nucleated Red Blood Cells # 0.0 Nucleated Red Blood Cells % 0.0 Platelet Count 351 Potassium Level 3.8 Red Blood Count 3.80 L Red Cell Distribution Width 13.2 Sodium Level 143 White Blood Count 8.4 Magnesium Level 2.0 Phosphorus Level 5.1 H Medications Medications Current Medications Dextrose/Sodium Chloride (D5-1/2ns) 1,000 ml @ 125 mls/hr Q8H IV Last administered on 09/03/16t 14:27; Admin Dose 125 MLS/HR; Start 08/30/16 at 06:30 Ondansetron HCl (Zofran Inj) 4 mg Q6H PRN IV NAUSEA AND/OR VOMITING Last administered on 09/02/16 13:25; Admin Dose 4 MG; Start 08/30/16 at 06:30 Acetaminophen (Tylenol Liquid) 650 mg Q6H PRN PO PAIN LEVEL 1-3 OR FEVER; Start 08/30/16 at 06:30 Acetaminophen (Tylenol Supp) 650 mg Q4H PRN [place] PAIN LEVEL 1-3 OR FEVER; Start 08/30/16 at 06:30 Lorazepam (Ativan) 2 mg Q1H PRN IV alcohol withdrawal Last administered on 09/03 23:26; Admin Dose 2 MG; Start 08/30/16 at 06:30 Famotidine 20 mg 20 mg Q12 IV Last administered on 09/03/16 20:29; Admin Dose 20 MG; Start 08/30/16 at 09:00 Fentanyl (Sublimaze) 100 ml @ 2.5 mls/hr TITRATE IV Last administered on 13:06; Admin Dose 6 MLS/HR; Start 08/31/16 at 02:30 Enoxaparin Sodium (Lovenox) 30 mg DAILY SC Last administered on 09/03/16 08:19 ; Admin Dose 30 MG; Start 09/01/16 at 09:00 Chlordiazepoxide (Librium) 50 mg TID NGT Last administered on 09/03/16 20:29; Admin Dose 50 MG; Start 09/01/16 at 09:00 Ferrous Sulfate (Feosol Liquid Cup) 300 mg BID NGT Last administered on 20:29; Admin Dose 300 MG; Start 09/01/16 at 09:00 Cholecalciferol 1000 unit 1,000 unit DAILY NGT Last administered on 09/03/16 08:18; Admin Dose 1,000 UNIT; Start 09/01/16 at 09:00 Levofloxacin/ Dextrose (Levaquin 500mg/ D5W 100 ml (Pmx)) 100 ml @ 100 mls/hr Q24H IVPB Last administered on 09/03/16 08:18; Admin Dose 100 MLS/HR; Start at 08:30 KATHIA DURAN Sep 04, 2016 09:22
--- NOTE | 2016-09-04 09:26 | PN ---
Date/Time of Note Date/Time of Note DATE: 09/04/16 TIME: 09:25 Assessment/Plan VTE Prophylaxis VTE Prophylaxis Intervention: LMWH Lines/Catheters IV Catheter Type (from [facility]): Peripheral IV Urinary Cath still in place: Yes Reason Cath still needed: other (indicate) (Intubated) Assessment/Plan Chief Complaint/Hosp Course 1. Alcohol intoxication. The patient currently on a daily banana bag. The patient also on a tapering dose of Librium. 2. Acute hypoxic respiratory failure secondary to alcohol intoxication. The patient currently on a mechanical ventilator. Ventilator weaning as per pulmonary. 3. Sepsis secondary to aspiration pneumonia. Continue antibiotics. No evidence of any septic shock. 4. Normocytic normochromic anemia. Will monitor the H and H closely. Iron panel showing iron deficiency. Continue iron supplements. 5. Vitamin D deficiency. Continue vitamin D supplements. 6. Fluid, electrolytes and nutrition. The patient currently n.p.o. Continue IV fluids. 7. DVT prophylaxis, subcutaneous Lovenox. 8. Gastrointestinal prophylaxis. Histamine 2 receptor blockers. 9. Plan. Ventilator weaning as per pulmonary. Case discussed with Dr. Badillo. Critical Care time: 35 minutes. Problems: Subjective 24 Hr Interval Summary Free Text/Dictation The patient is on a CPAP trial. Exam/Review of Systems Vital Signs Vitals Vital Signs Date Time Temp Pulse Resp B/P Pulse Ox O2 Delivery O2 Flow Rate FiO2 09/04/16 08:38 65 10 98 30 09/04/16 08:30 88/50 09/04/16 08:00 98.6 Mechanical Ventilator Intake and Output 09/03/16 09/03/16 09/04/16 15:00 23:00 07:00 Intake Total 380 ml 1855 ml 967.5 ml Output Total 2985 ml 1145 ml 850 ml Balance -2605 ml 710 ml 117.5 ml Exam GENERAL: This is a slightly overweight male lying in bed, orally intubated and mechanically ventilated. HEENT: Head normocephalic and atraumatic. Eyes: Anicteric sclerae. Conjunctivae clear. ENT: Nasal septum is midline. Oral mucosa is dry. Orally intubated. NECK: Supple. No JVD noticed. RESPIRATORY: Bilaterally diminished breath sounds. Mechanically ventilated. On CPAP trial. Diminished breath sounds. CARDIAC: Regular rate and rhythm. No obvious murmurs heard. ABDOMEN: Soft, nontender and nondistended. Bowel sounds positive in all 4 quadrants. GENITOURINARY: The patient has a Carrillo catheter in place. EXTREMITIES: No cyanosis, no clubbing, no edema. Peripheral pulses are palpable. NEUROLOGIC: The patient is awake and alert. Follows commands. Results Result Diagram: 09/04/16 0520 09/04/16 0520 Results 24 hrs Laboratory Tests Test 09/03/16 17:00 09/04/16 05:20 09/04/16 05:26 Arterial Blood HCO3 29.1 H Arterial Blood Base Excess 4.2 H Arterial Blood Oxygen Saturation 93.0 L Bryan Test ACCEPTAB Arterial Blood Gas Puncture Site Right Radial Arterial Blood Carboxyhemoglobin 0.3 Arterial Blood Date Drawn 09/03/2016 5:15:42 PM Arterial Blood Methemoglobin 0.3 Arterial Blood pCO2 (Temp correct) 44.7 Arterial Blood pH (Temp corrected) 7.431 Arterial Blood pO2 (Temp corrected) 66.1 L Blood Gas A-a O2 Differential 95.3 H Blood Gas Actual Respiration Rate 17 Blood Gas Modality VENT - CPAP Blood Gas Notified Time 09/03/2016 5:25:15 PM Blood Gas Notified Whom CW Blood Gas Specimen Source Blood arterial Blood Gas Temperature 37.0 Blood Gas Tidal Volume 476.0 FiO2 30.0 Oxyhemoglobin Percent 92.4 L Total Hemoglobin 12.1 Anion Gap 13 Basophils # 0.0 Basophils % 0.4 Blood Urea Nitrogen 6 L Calcium Level 8.6 Carbon Dioxide Level 30 Chloride Level 104 Creatinine 0.73 Eosinophils # 0.4 Eosinophils % 4.7 Glucose Level 113 Hematocrit 33.9 L Hemoglobin 11.0 L Lymphocytes # 1.4 Lymphocytes % 16.6 Mean Corpuscular Hemoglobin 28.9 L Mean Corpuscular Hemoglobin Concent 32.4 Mean Corpuscular Volume 89.2 Mean Platelet Volume 9.9 Monocytes # 0.6 Monocytes % 7.4 Neutrophils # 5.9 Neutrophils % 70.4 Nucleated Red Blood Cells # 0.0 Nucleated Red Blood Cells % 0.0 Platelet Count 351 Potassium Level 3.8 Red Blood Count 3.80 L Red Cell Distribution Width 13.2 Sodium Level 143 White Blood Count 8.4 Magnesium Level 2.0 Phosphorus Level 5.1 H Medications Medications Current Medications Dextrose/Sodium Chloride (D5-1/2ns) 1,000 ml @ 125 mls/hr Q8H IV Last administered on 09/03/16 14:27; Admin Dose 125 MLS/HR; Start 08/30/16 at 06:30 Ondansetron HCl (Zofran Inj) 4 mg Q6H PRN IV NAUSEA AND/OR VOMITING Last administered on 09/02/16 13:25; Admin Dose 4 MG; Start 08/30/16 at 06:30 Acetaminophen (Tylenol Liquid) 650 mg Q6H PRN PO PAIN LEVEL 1-3 OR FEVER; Start 08/30/16 at 06:30 Acetaminophen (Tylenol Supp) 650 mg Q4H PRN [place] PAIN LEVEL 1-3 OR FEVER; Start 08/30/16 at 06:30 Lorazepam (Ativan) 2 mg Q1H PRN IV alcohol withdrawal Last administered on 09/03 23:26; Admin Dose 2 MG; Start 08/30/16 at 06:30 Famotidine 20 mg 20 mg Q12 IV Last administered on 09/03/16 20:29; Admin Dose 20 MG; Start 08/30/16 at 09:00 Fentanyl (Sublimaze) 100 ml @ 2.5 mls/hr TITRATE IV Last administered on 13:06; Admin Dose 6 MLS/HR; Start 08/31/16 at 02:30 Enoxaparin Sodium (Lovenox) 30 mg DAILY SC Last administered on 09/03/16 08:19 ; Admin Dose 30 MG; Start 09/01/16 at 09:00 Chlordiazepoxide (Librium) 50 mg TID NGT Last administered on 09/03/16 20:29; Admin Dose 50 MG; Start 09/01/16 at 09:00 Ferrous Sulfate (Feosol Liquid Cup) 300 mg BID NGT Last administered on 20:29; Admin Dose 300 MG; Start 09/01/16 at 09:00 Cholecalciferol 1000 unit 1,000 unit DAILY NGT Last administered on 09/03/16 08:18; Admin Dose 1,000 UNIT; Start 09/01/16 at 09:00 Levofloxacin/ Dextrose (Levaquin 500mg/ D5W 100 ml (Pmx)) 100 ml @ 100 mls/hr Q24H IVPB Last administered on 09/03/16 08:18; Admin Dose 100 MLS/HR; Start at 08:30 FRANKLYN PENA NP Sep 04, 2016 09:26
[2016-09-04] MEDS: FAMOTIDINE 20 MG INJ IV SCH ×2 (09:40→20:32)
[2016-09-04] MEDS: CHOLECALCIFEROL 1,000 UNIT TAB NGT SCH (09:40)
[2016-09-04] MEDS: LEVOFLOXACIN 500MG/D5W (PMX) 100 ML IVPB SCH (09:40)
[2016-09-04] MEDS: CHLORDIAZEPOXIDE 25 MG CAP NGT SCH ×3 (09:41→20:32)
[2016-09-04] MEDS: FERROUS SULFATE 60 MG/ML 5ML CUP NGT SCH ×2 (09:41→20:32)
[2016-09-04] MEDS: ENOXAPARIN 30 MG/0.3 ML SYG SC SCH (09:42)
[2016-09-04] MEDS ORDERED: FUROSEMIDE 40 MG INJ IV ONE (10:30)
[2016-09-04] MEDS ORDERED: RACEPINEPHRINE 2.25%(NEB) 0.5 ML AMP HHN ONE (13:20)
[2016-09-04] MEDS ORDERED: RACEPINEPHRINE 2.25%(NEB) 0.5 ML AMP ONE (13:25)
[2016-09-04] MEDS ORDERED: ALBUTEROL/IPRATROPIUM (NEB) 3 ML AMP HHN PRN (14:00)
[2016-09-04] MEDS: ALBUTEROL/IPRATROPIUM (NEB) 3 ML AMP HHN SCH ×2 (15:30→19:57)
[2016-09-05] VITALS (20 sets, daily range): BP systolic 81–126; BP diastolic 45–105; PULSE 66–101; RESP 16–26
[2016-09-05] MEDS: DEXTROSE 5%-0.45% NACL 1,000 ML IV SCH ×2 (01:00→20:55)
[2016-09-05] MEDS: ALBUTEROL/IPRATROPIUM (NEB) 3 ML AMP HHN SCH ×4 (01:39→20:03)
[2016-09-05] MEDS ORDERED: SOD CHLORIDE 0.9% 500 ML IV ONE (03:30)
[2016-09-05 05:08] LABS: ADD SCAN DIFF NO
[2016-09-05 05:15] LABS: POTASSIUM 3.7 mmol/L (3.5-5.1)
[2016-09-05 05:18] LABS: CREATININE 0.79 mg/dl (0.61-1.24)
[2016-09-05 05:19] LABS: CALCIUM 8.7 mg/dl (8.4-10.2)
[2016-09-05 05:20] LABS: BASOPHILS % 0.4 % (0.0-2.0); EOSINOPHILS # 0.5 10^3/ul (0.0-0.5); EOSINOPHILS % 6.3 % (0.0-7.0); HEMATOCRIT 34.1 % (42.0-52.0); HEMOGLOBIN 11.4 g/dl (14.0-18.0); LYMPHOCYTES # 1.5 10^3/ul (0.8-2.9); LYMPHOCYTES % 18.2 % (15.0-51.0); MEAN CORPUSCULAR HEMOGLOBIN 29.2 pg (29.0-33.0); MEAN CORPUSCULAR HGB CONC 33.4 g/dl (32.0-37.0); MEAN CORPUSCULAR VOLUME 87.2 fl (82.0-101.0); MEAN PLATELET VOLUME 9.6 fl (7.4-10.4); MONOCYTE # 0.6 10^3/ul (0.3-0.9); MONOCYTES % 7.8 % (0.0-11.0); NEUTROPHIL # 5.5 10^3/ul (1.6-7.5); NEUTROPHILS % 66.8 % (39.0-77.0); PLATELET COUNT 375 10^3/UL (140-415); RED BLOOD COUNT 3.91 10^6/ul (4.70-6.10); RED CELL DISTRIBUTION WIDTH 13.1 % (11.5-14.5); WHITE BLOOD COUNT 8.3 10^3/ul (4.8-10.8)
--- NOTE | 2016-09-05 08:20 | RADRPT ---
PROCEDURE: XR Chest AP portable CLINICAL INDICATION: Fluid overload TECHNIQUE: An AP portable radiograph of the chest was submitted. COMPARISON: 09/03/2016 FINDINGS: Support Hardware: The patient has been extubated and the NG tube has been removed. Cardiovascular: The cardiovascular silhouette appears unremarkable. Lung Fernandes: A suboptimal inspiration compresses lung parenchyma with discoid atelectatic change see n at the lung bases. Pleural Spaces: No pneumothorax or pleural effusion is identified. Osseous Structures: The osseous structures appear intact. Soft Tissues: The soft tissues appear unremarkable. IMPRESSION: 1. Interval extubation and removal of the NG tube. 2. Suboptimal inspiration with discoid atelectasis seen at the lung bases, slightly worsened. Physician Dariel Date Time Electronically viewed and signed by Physician Dariel on 09/05/2016 08:20 /
[2016-09-05] MEDS: CHOLECALCIFEROL 1,000 UNIT TAB NGT SCH (08:29)
[2016-09-05] MEDS: FERROUS SULFATE 60 MG/ML 5ML CUP NGT SCH ×2 (08:29→20:54)
[2016-09-05] MEDS: CHLORDIAZEPOXIDE 25 MG CAP NGT SCH (08:29)
[2016-09-05] MEDS: LEVOFLOXACIN 500MG/D5W (PMX) 100 ML IVPB SCH (08:29)
[2016-09-05] MEDS: ENOXAPARIN 30 MG/0.3 ML SYG SC SCH (08:30)
--- NOTE | 2016-09-05 08:41 | PN ---
Date/Time of Note Date/Time of Note DATE: 09/05/16 TIME: 08:38 Assessment/Plan VTE Prophylaxis VTE Prophylaxis Intervention: LMWH Lines/Catheters IV [facility]ter [facility] (from [facility]): Peripheral IV Urinary Cath still in place: Yes Reason Cath still needed: other (indicate) (To be discontinued.) Assessment/Plan Chief Complaint/Hosp Course 1. Alcohol intoxication. The patient currently on a daily banana bag. The patient also on a tapering dose of Librium. 2. Acute hypoxic respiratory failure secondary to alcohol intoxication. Status post extubation on 09/05/2016. 3. Sepsis secondary to aspiration pneumonia. Continue antibiotics. No evidence of any septic shock. 4. Normocytic normochromic anemia. Will monitor the H and H closely. Iron panel showing iron deficiency. Continue iron supplements. 5. Vitamin D deficiency. Continue vitamin D supplements. 6. Fluid, electrolytes and nutrition. Mechanical soft diet. Continue IV fluids. 7. DVT prophylaxis, subcutaneous Lovenox. 8. Gastrointestinal prophylaxis. Histamine 2 receptor blockers. 9. Plan. Discontinue Carrillo catheter. Obtain physical therapy evaluation. Transfer the patient out of the ICU. Case discussed with Dr. Badillo. Critical Care time: 35 minutes. Problems: Subjective 24 Hr Interval Summary Free Text/Dictation The patient is extubated. Doing well. Exam/Review of Systems Vital Signs Vitals Vital Signs Date Time Temp Pulse Resp B/P Pulse Ox O2 Delivery O2 Flow Rate FiO2 09/05/16 06:00 69 24 107/72 100 09/05/16 05:30 Nasal Cannula 6.0 09/05/16 04:00 98.0 09/05/16 01:40 50 Intake and Output 09/04/16 09/04/16 09/05/16 15:00 23:00 07:00 Intake Total 468 ml 80 ml 720 ml Output Total 2625 ml 530 ml 320 ml Balance -2157 ml -450 ml 400 ml Exam GENERAL: This is a slightly overweight male lying in bed in no apparent distress. HEENT: Head normocephalic and atraumatic. Eyes: Anicteric sclerae. Conjunctivae clear. ENT: Nasal septum is midline. Oral mucosa is dry. NECK: Supple. No JVD noticed. RESPIRATORY: Bilaterally diminished breath sounds. No use of accessory muscles of respiration. CARDIAC: Regular rate and rhythm. No obvious murmurs heard. ABDOMEN: Soft, nontender and nondistended. Bowel sounds positive in all 4 quadrants. GENITOURINARY: The patient has a Carrillo catheter in place. EXTREMITIES: No cyanosis, no clubbing, no edema. Peripheral pulses are palpable. NEUROLOGIC: The patient is awake, alert, and oriented. Follows commands. Results Result Diagram: 09/05/16 0430 09/05/16 0430 Results 24 hrs Laboratory Tests Test 09/04/16 19:07 09/05/16 04:30 Potassium Level 3.8 3.7 Anion Gap 13 Basophils # 0.0 Basophils % 0.4 Blood Urea Nitrogen 10 Calcium Level 8.7 Carbon Dioxide Level 29 Chloride Level 105 Creatinine 0.79 Eosinophils # 0.5 Eosinophils % 6.3 Glucose Level 95 Hematocrit 34.1 L Hemoglobin 11.4 L Lymphocytes # 1.5 Lymphocytes % 18.2 Magnesium Level 2.0 Mean Corpuscular Hemoglobin 29.2 Mean Corpuscular Hemoglobin Concent 33.4 Mean Corpuscular Volume 87.2 Mean Platelet Volume 9.6 Monocytes # 0.6 Monocytes % 7.8 Neutrophils # 5.5 Neutrophils % 66.8 Nucleated Red Blood Cells # 0.0 Nucleated Red Blood Cells % 0.0 Phosphorus Level 4.0 Platelet Count 375 Red Blood Count 3.91 L Red Cell Distribution Width 13.1 Sodium Level 143 White Blood Count 8.3 Medications Medications Current Medications Ondansetron HCl (Zofran Inj) 4 mg Q6H PRN IV NAUSEA AND/OR VOMITING Last administered on 09/02/16 13:25; Admin Dose 4 MG; Start 08/30/16 at 06:30 Acetaminophen (Tylenol Liquid) 650 mg Q6H PRN PO PAIN LEVEL 1-3 OR FEVER; Start 08/30/16 at 06:30 Acetaminophen (Tylenol Supp) 650 mg Q4H PRN [place] PAIN LEVEL 1-3 OR FEVER; Start 08/30/16 at 06:30 Lorazepam (Ativan) 2 mg Q1H PRN IV alcohol withdrawal Last administered on 09/03 23:26; Admin Dose 2 MG; Start 08/30/16 at 06:30 Famotidine (Pepcid Iv) 20 mg Q12 IV Last administered on 09/04/16 20:32; Admin Dose 20 MG; Start 08/30/16 at 09:00 Enoxaparin Sodium (Lovenox) 30 mg DAILY SC Last administered on 09/05/16 08:30 ; Admin Dose 30 MG; Start 09/01/16 at 09:00 Chlordiazepoxide (Librium) 50 mg TID NGT Last administered on 09/05/16 08:29; Admin Dose 50 MG; Start 09/01/16 at 09:00 Ferrous Sulfate (Feosol Liquid Cup) 300 mg BID NGT Last administered on 08:29; Admin Dose 300 MG; Start 09/01/16 at 09:00 Cholecalciferol 1000 unit 1,000 unit DAILY NGT Last administered on 09/05/16 08:29; Admin Dose 1,000 UNIT; Start 09/01/16 at 09:00 Levofloxacin/ Dextrose 100 ml @ 100 mls/hr Q24H IVPB Last administered on 09/05 08:29; Admin Dose 100 MLS/HR; Start 09/02/16 at 08:30 Dextrose/Sodium Chloride (D5-1/2ns) 1,000 ml @ 50 mls/hr Q20H IV Last administered on 09/05/16 01:00; Admin Dose 50 MLS/HR; Start 09/05/16 at 01:00 FRANKLYN PENA NP Sep 05, 2016 08:41
[2016-09-05] MEDS: FAMOTIDINE 20 MG INJ IV SCH ×2 (08:53→20:54)
--- NOTE | 2016-09-05 10:08 | CONS ---
Date/Time of Note Date/Time of Note DATE: 09/05/16 TIME: 10:04 Assessment/Plan Assessment/Plan Additional Assessment/Plan Assessment recommendations; 1. Patient admitted with alcohol withdrawal leading to respiratory failure no doing very well post extubation yesterday afternoon. 2. Possibly some element of basilar pneumonia. However chest x-ray from today is only showing slightly smaller lung volumes otherwise no acute infiltrates identified. Continue current supportive care. Patient can be transferred to the medical floor. I will sign off. Thanks for the consult. Please reconsult if needed. Consultation Date/Type/Reason Admit Date/Time Aug 30, 2016 at 05:37 Initial Consult Date 08/31/16 Type of Consultation: Pulmonary/critical care 24 HR Interval Summary Free Text/Dictation Patient's condition is markedly improved. Patient was successfully extubated yesterday afternoon. He is awake, alert denies any shortness of breath, chest congestion, fever,. Patient is eating well. Denies any dysphagia. General examination; young male, awake alert currently in no distress. Exam/Review of Systems Vital Signs Vitals Vital Signs Date Time Temp Pulse Resp B/P Pulse Ox O2 Delivery O2 Flow Rate FiO2 09/05/16 09:04 96 5.0 40 09/05/16 09:04 84 22 Nasal Cannula 09/05/16 06:00 107/72 09/05/16 04:00 98.0 Intake and Output 09/04/16 09/04/16 09/05/16 15:00 23:00 07:00 Intake Total 468 ml 80 ml 720 ml Output Total 2625 ml 530 ml 320 ml Balance -2157 ml -450 ml 400 ml Exam H EENT examination; supple neck, no JVD. No lymphadenopathy. Midline trachea. Pharynx is clear. Pupils are midsize and reactive to light bilaterally. Fair dentition. Chest examination; diminished but clear breath sounds bilaterally. S1-S2 audible, no murmurs. Regular rhythm. Abdomen examination; soft, nontender. No distention. No organomegaly. Bowel sounds audible. Extremity examination; no peripheral edema. IMP[employer] ANALYST examination; no focal deficit. Results Result Diagram: 09/05/16 0430 09/05/16 0430 Results 24 hrs Laboratory Tests Test 09/04/16 19:07 09/05/16 04:30 Potassium Level 3.8 3.7 Anion Gap 13 Basophils # 0.0 Basophils % 0.4 Blood Urea Nitrogen 10 Calcium Level 8.7 Carbon Dioxide Level 29 Chloride Level 105 Creatinine 0.79 Eosinophils # 0.5 Eosinophils % 6.3 Glucose Level 95 Hematocrit 34.1 L Hemoglobin 11.4 L Lymphocytes # 1.5 Lymphocytes % 18.2 Magnesium Level 2.0 Mean Corpuscular Hemoglobin 29.2 Mean Corpuscular Hemoglobin Concent 33.4 Mean Corpuscular Volume 87.2 Mean Platelet Volume 9.6 Monocytes # 0.6 Monocytes % 7.8 Neutrophils # 5.5 Neutrophils % 66.8 Nucleated Red Blood Cells # 0.0 Nucleated Red Blood Cells % 0.0 Phosphorus Level 4.0 Platelet Count 375 Red Blood Count 3.91 L Red Cell Distribution Width 13.1 Sodium Level 143 White Blood Count 8.3 Medications Medications Current Medications Ondansetron HCl (Zofran Inj) 4 mg Q6H PRN IV NAUSEA AND/OR VOMITING Last administered on 09/02/16 13:25; Admin Dose 4 MG; Start 08/30/16 at 06:30 Acetaminophen (Tylenol Liquid) 650 mg Q6H PRN PO PAIN LEVEL 1-3 OR FEVER; Start 08/30/16 at 06:30 Acetaminophen (Tylenol Supp) 650 mg Q4H PRN [place] PAIN LEVEL 1-3 OR FEVER; Start 08/30/16 at 06:30 Lorazepam (Ativan) 2 mg Q1H PRN IV alcohol withdrawal Last administered on 09/03 23:26; Admin Dose 2 MG; Start 08/30/16 at 06:30 Famotidine (Pepcid Iv) 20 mg Q12 IV Last administered on 09/05/16 08:53; Admin Dose 20 MG; Start 08/30/16 at 09:00 Enoxaparin Sodium (Lovenox) 30 mg DAILY SC Last administered on 09/05/16 08:30 ; Admin Dose 30 MG; Start 09/01/16 at 09:00 Ferrous Sulfate (Feosol Liquid Cup) 300 mg BID NGT Last administered on 08:29; Admin Dose 300 MG; Start 09/01/16 at 09:00 Cholecalciferol 1000 unit 1,000 unit DAILY NGT Last administered on 09/05/16 08:29; Admin Dose 1,000 UNIT; Start 09/01/16 at 09:00 Levofloxacin/ Dextrose 100 ml @ 100 mls/hr Q24H IVPB Last administered on 09/05 08:29; Admin Dose 100 MLS/HR; Start 09/02/16 at 08:30 Dextrose/Sodium Chloride (D5-1/2ns) 1,000 ml @ 50 mls/hr Q20H IV Last administered on 09/05/16 01:00; Admin Dose 50 MLS/HR; Start 09/05/16 at 01:00 Chlordiazepoxide (Librium) 25 mg TID PO ; Start 09/05/16 at 13:00 KATHIA DURAN Sep 05, 2016 10:08
[2016-09-05] MEDS: CHLORDIAZEPOXIDE 25 MG CAP PO SCH ×2 (12:46→20:54)
[2016-09-06] MEDS: ALBUTEROL/IPRATROPIUM (NEB) 3 ML AMP HHN SCH ×3 (02:05→14:00)
[2016-09-06] MEDS: DEXTROSE 5%-0.45% NACL 1,000 ML IV SCH (03:31)
[2016-09-06 05:48] LABS: ADD SCAN DIFF NO
[2016-09-06 06:03] LABS: POTASSIUM 3.6 mmol/L (3.5-5.1)
[2016-09-06 06:04] LABS: BASOPHIL # 0.1 10^3/ul (0.0-0.1); BASOPHILS % 0.4 % (0.0-2.0); EOSINOPHILS # 0.3 10^3/ul (0.0-0.5); EOSINOPHILS % 2.5 % (0.0-7.0); HEMATOCRIT 34.1 % (42.0-52.0); HEMOGLOBIN 11.3 g/dl (14.0-18.0); LYMPHOCYTES # 1.7 10^3/ul (0.8-2.9); LYMPHOCYTES % 13.8 % (15.0-51.0); MEAN CORPUSCULAR HEMOGLOBIN 29.1 pg (29.0-33.0); MEAN CORPUSCULAR HGB CONC 33.1 g/dl (32.0-37.0); MEAN CORPUSCULAR VOLUME 87.9 fl (82.0-101.0); MEAN PLATELET VOLUME 9.7 fl (7.4-10.4); MONOCYTE # 1.1 10^3/ul (0.3-0.9); MONOCYTES % 8.8 % (0.0-11.0); NEUTROPHIL # 9.4 10^3/ul (1.6-7.5); PLATELET COUNT 415 10^3/UL (140-415); RED BLOOD COUNT 3.88 10^6/ul (4.70-6.10); RED CELL DISTRIBUTION WIDTH 13.3 % (11.5-14.5); WHITE BLOOD COUNT 12.6 10^3/ul (4.8-10.8)
[2016-09-06 06:05] LABS: CREATININE 0.82 mg/dl (0.61-1.24)
[2016-09-06 06:06] LABS: CALCIUM 8.5 mg/dl (8.4-10.2)
[2016-09-06 06:07] LABS: MAGNESIUM 2.1 mg/dl (1.7-2.5); PHOSPHORUS 3.7 mg/dl (2.5-4.9)
[2016-09-06 07:54] VITALS: BP 95/56; RESP 16
[2016-09-06] MEDS: FAMOTIDINE 20 MG INJ IV SCH (09:16)
[2016-09-06] MEDS: LEVOFLOXACIN 500MG/D5W (PMX) 100 ML IVPB SCH (09:16)
[2016-09-06] MEDS: CHLORDIAZEPOXIDE 25 MG CAP PO SCH (09:16)
[2016-09-06] MEDS: CHOLECALCIFEROL 1,000 UNIT TAB NGT SCH (09:16)
[2016-09-06] MEDS: FERROUS SULFATE 60 MG/ML 5ML CUP NGT SCH (09:17)
[2016-09-06] MEDS: ENOXAPARIN 30 MG/0.3 ML SYG SC SCH (09:27)
[2016-09-06 09:28] VITALS: BP 116/63; PULSE 97; RESP 18
--- NOTE | 2016-09-06 11:21 | PN ---
Date/Time of Note Date/Time of Note DATE: 09/06/16 TIME: 11:19 Assessment/Plan VTE Prophylaxis VTE Prophylaxis Intervention: LMWH Lines/Catheters IV [facility]ter Type (from [facility]): Peripheral IV Urinary Cath still in place: No Assessment/Plan Chief Complaint/Hosp Course 1. Alcohol intoxication. The patient currently on a daily banana bag. The patient also on a tapering dose of Librium. 2. Acute hypoxic respiratory failure secondary to alcohol intoxication. Status post extubation on 09/05/2016. 3. Sepsis secondary to aspiration pneumonia. Continue antibiotics. No evidence of any septic shock. 4. Normocytic normochromic anemia. Will monitor the H and H closely. Iron panel showing iron deficiency. Continue iron supplements. 5. Vitamin D deficiency. Continue vitamin D supplements. 6. Deconditioning. Continue physical therapy. 7. Fluid, electrolytes and nutrition. Mechanical soft diet. Continue IV fluids. 8. DVT prophylaxis, subcutaneous Lovenox. 9. Gastrointestinal prophylaxis. Histamine 2 receptor blockers. 10. Plan. Taper down Librium. Continue physical therapy. Case discussed with Dr. Badillo. Plan of care was explained to the patient's family, who was at the bedside. Problems: Subjective 24 Hr Interval Summary Free Text/Dictation The patient has been somnolent. The patient was evaluated by physical therapy on 09/05/2016. Physical therapy recommended front wheel walker with home health physical therapy upon discharge versus long term facility placement. Exam/Review of Systems Vital Signs Vitals Vital Signs Date Time Temp Pulse Resp B/P Pulse Ox O2 Delivery O2 Flow Rate FiO2 09/06/16 09:28 97.9 97 18 116/63 94 Nasal Cannula 4.0 09/05/16 13:59 40 Intake and Output 09/05/16 09/05/16 09/06/16 15:00 23:00 07:00 Intake Total 340 ml 1100 ml 400 ml Output Total 600 ml 800 ml Balance -260 ml 300 ml 400 ml Exam GENERAL: This is a slightly overweight male lying in bed in no apparent distress. HEENT: Head normocephalic and atraumatic. Eyes: Anicteric sclerae. Conjunctivae clear. ENT: Nasal septum is midline. Oral mucosa is dry. NECK: Supple. No JVD noticed. RESPIRATORY: Bilaterally diminished breath sounds. No use of accessory muscles of respiration. CARDIAC: Regular rate and rhythm. No obvious murmurs heard. ABDOMEN: Soft, nontender and nondistended. Bowel sounds positive in all 4 quadrants. GENITOURINARY: The patient has a Carrillo catheter in place. EXTREMITIES: No cyanosis, no clubbing, no edema. Peripheral pulses are palpable. NEUROLOGIC: The patient is lethargic. Results Result Diagram: 09/06/16 0515 09/06/16 0515 Results 24 hrs Laboratory Tests Test 09/06/16 05:15 Anion Gap 16 Basophils # 0.1 Basophils % 0.4 Blood Urea Nitrogen 10 Calcium Level 8.5 Carbon Dioxide Level 25 Chloride Level 107 Creatinine 0.82 Eosinophils # 0.3 Eosinophils % 2.5 Glucose Level 110 Hematocrit 34.1 L Hemoglobin 11.3 L Lymphocytes # 1.7 Lymphocytes % 13.8 L Magnesium Level 2.1 Mean Corpuscular Hemoglobin 29.1 Mean Corpuscular Hemoglobin Concent 33.1 Mean Corpuscular Volume 87.9 Mean Platelet Volume 9.7 Monocytes # 1.1 H Monocytes % 8.8 Neutrophils # 9.4 H Neutrophils % 74.0 Nucleated Red Blood Cells # 0.0 Nucleated Red Blood Cells % 0.0 Phosphorus Level 3.7 Platelet Count 415 Potassium Level 3.6 Red Blood Count 3.88 L Red Cell Distribution Width 13.3 Sodium Level 144 White Blood Count 12.6 #H Medications Medications Current Medications Ondansetron HCl (Zofran Inj) 4 mg Q6H PRN IV NAUSEA AND/OR VOMITING Last administered on 09/02/16 13:25; Admin Dose 4 MG; Start 08/30/16 at 06:30 Acetaminophen (Tylenol Liquid) 650 mg Q6H PRN PO PAIN LEVEL 1-3 OR FEVER Last administered on 09/06/16 03:33; Admin Dose 650 MG; Start 08/30/16 at 06:30 Acetaminophen (Tylenol Supp) 650 mg Q4H PRN [place] PAIN LEVEL 1-3 OR FEVER; Start 08/30/16 at 06:30 Lorazepam (Ativan) 2 mg Q1H PRN IV alcohol withdrawal Last administered on 09/03 23:26; Admin Dose 2 MG; Start 08/30/16 at 06:30 Famotidine (Pepcid Iv) 20 mg Q12 IV Last administered on 09/06/16 09:16; Admin Dose 20 MG; Start 08/30/16 at 09:00 Enoxaparin Sodium (Lovenox) 30 mg DAILY SC Last administered on 09/06/16 09:27 ; Admin Dose 30 MG; Start 09/01/16 at 09:00 Ferrous Sulfate (Feosol Liquid Cup) 300 mg BID NGT Last administered on 09:17; Admin Dose 300 MG; Start 09/01/16 at 09:00 Cholecalciferol 1000 unit 1,000 unit DAILY NGT Last administered on 09/06/16 09:16; Admin Dose 1,000 UNIT; Start 09/01/16 at 09:00 Levofloxacin/ Dextrose 100 ml @ 100 mls/hr Q24H IVPB Last administered on 09/06 09:16; Admin Dose 100 MLS/HR; Start 09/02/16 at 08:30 Dextrose/Sodium Chloride (D5-1/2ns) 1,000 ml @ 50 mls/hr Q20H IV Last administered on 09/06/16 03:31; Admin Dose 50 MLS/HR; Start 09/05/16 at 01:00 Chlordiazepoxide (Librium) 25 mg TID PO Last administered on 09/06/16 09:16; Admin Dose 25 MG; Start 09/05/16 at 13:00 FRANKLYN PENA NP Sep 06, 2016 11:21
--- NOTE | 2016-09-06 11:37 | PDOCDIS ---
Discharge Instructions DIAGNOSIS Discharge Diagnosis: Alcohol intoxication. Aspiration pneumonia. CONDITION Patient Condition: Stable HOME CARE INSTRUCTIONS: Diet Instructions: Regular FOLLOW UP/APPOINTMENTS Appointments Damon Hand MD Specialty: Internal Medicine Office Address: [address] [place], [place] [id number] Office OTHER ORDERS: Other Orders: 1. Take a regular diet as tolerated. 2. Take medications as per prescription. 3. Avoid using alcohol. 4. Resume activities with the help of front wheel walker. 5. Follow-up with your primary care physician in 2 weeks. If you do not have a primary care physician, please call Dr. Damon Hand's office. FRANKLYN PENA NP Sep 06, 2016 11:37
[2016-09-06] MEDS ORDERED: THIA100T56 PO (11:40)
[2016-09-06] MEDS ORDERED: FER325 PO (11:40)
[2016-09-06] MEDS ORDERED: CHLO5CAP2 PO (11:40)
[2016-09-06] MEDS ORDERED: CHOL100062 PO (11:40)
[2016-09-06] MEDS ORDERED: LEVO750T8 PO (11:56)
[2016-09-06] MEDS ORDERED: CHLORDIAZEPOXIDE 5 MG CAP PO SCH (13:00)
--- NOTE | 2016-09-06 13:12 | DS ---
DATE OF ADMISSION: 08/30/2016 DATE OF DISCHARGE: 09/06/2016 FINAL DIAGNOSES: 1. Alcohol intoxication. 2. Acute encephalopathy secondary to alcohol intoxication. 3. Acute hypoxic respiratory failure secondary to alcohol intoxication with resultant aspiration pneumonia. 4. Status post sepsis secondary to aspiration pneumonia. 5. Aspiration pneumonia. 6. Normocytic normochromic anemia. 7. Iron deficiency. 8. Vitamin D deficiency. 9. Deconditioning. CONSULTANTS: Dr. Fam Art, pulmonology. HOSPITAL COURSE: This is a 31-year-old male who was brought to the emergency room by EMS because of loss of consciousness and alcohol intoxication. The patient was emergently intubated in the ER. The patient was transferred to intensive care unit for further management. The patient was started on a daily banana bag. The patient was initially maintained on Versed and fentanyl drip for sedation and also to help with alcohol withdrawal. The patient had underlying sepsis. The patient's sputum culture was positive for Enterobacter aerogenes and Staphylococcus aureus that was sensitive to levofloxacin. The patient did not have any evidence of any septic shock. The patient was had hypoxic respiratory failure secondary to aspiration pneumonia. The patient was maintained on inhaled bronchodilators. The patient was difficult to wean off the ventilator because of underlying alcohol withdrawal probably, and also secondary to underlying pneumonia. The patient was weaned off the ventilator and was extubated on 09/05/2016. The patient was moved out of the intensive care unit on 09/05/2016. The patient was noticed to have normocytic normochromic anemia. The patient's iron panel showed underlying iron deficiency. The patient was maintained on iron supplements. The patient was also noted to have vitamin D deficiency. The patient was maintained on vitamin D supplements for the same. The patient was noticed to be severely deconditioned because of prolonged bedridden status secondary to being on a ventilator. The patient was seen and evaluated by physical therapy. Physical therapy recommended a front-wheel walker upon discharge and with home health PT versus for further rehabilitation. Post- extubation, the patient was started on a diet, and the patient was able to tolerate oral intake without any significant problems. The patient is clinically stable to be discharged home today. DISCHARGE DISPOSITION/PLAN: The patient will be discharged home today. The patient was instructed to take a regular diet as tolerated. He was instructed to take medications as per prescription. He was instructed to avoid using alcohol. He was instructed to resume activities with the help of a front-wheel walker. Home health has been arranged for home physical therapy and home safety evaluation (But the patient is not eligible for home health based on the patient's insurance). The patient was instructed to follow up with his primary care physician in 2 weeks, and if he does not have a primary care physician, to please call Dr. Damon Hand's office. The patient verbalized understanding of his discharge instructions. CONDITION AT DISCHARGE: Stable. DISCHARGE MEDICATIONS: 1. Chlordiazepoxide 10 mg p.o. daily x2 days, followed by chlordiazepoxide 5 mg p.o. t.i.d. x2 days. 2. Vitamin D3 1000 units p.o. daily. 3. Ferrous sulfate 325 p.o. b.i.d. 4. Thiamine 100 mg p.o. daily. PERTINENT LABORATORY AND DIAGNOSTIC DATA: 1. Latest chest x-ray. Interval extubation and removal of NG tube. Suboptimal inspiration with discoid atelectasis seen at the lung bases. 2. Brain CT scan of the brain. No acute abnormality is seen. 3. Sputum culture positive for Enterobacter aerogenes and Staphylococcus aureus. 4. Blood culture x2 negative. 5. Urine culture negative. 6. Latest CBC: WBC 12.6, hemoglobin 11.3, hematocrit 34.1, platelet count 415. 7. Latest BMP: Sodium 144, potassium 3.6, chloride 107, carbon dioxide 20, anion gap 16, BUN 10, creatinine 0.82, glucose 100, calcium 8.5, phosphorus 3.7 , magnesium 2.1. 8. Hemoglobin A1c 5.9. 9. Fasting lipid panel: Triglycerides 121, total cholesterol 138, LDL 78, HDL 36. 10. Vitamin B 24.6. 11. Thyroid panel: TSH 1.790, free T4 1.16. 12. Ethyl alcohol 452. At this time, we would like to thank Dr. Art for seeing the patient and providing clinical recommendations. The case and management of this patient was fully discussed with Dr. Gonzalez. Approximately 40 minutes was spent on coordinating the discharge on this patient. FRANKLYN GONZALEZ MD, AM/GLORIA Conf#: [id number] DID#: [id number] [facility]
== END 2016-09-06 14:55 | disposition home or self-care (01) | DRG 870 ==
LOC: E/R 03:12 → ICU 05:37 → MS2 09-05 11:25
PROVIDERS: ADMIT Internal Medicine; ATTEND Internal Medicine
PROC: 5A1955Z Respiratory Ventilation, Greater than 96 Consecutive Hours (ICD-10-PCS; principal; 2016-08-30)
PROC: 0BH17EZ Insertion of Endotracheal Airway into Trachea, Via Natural or Artificial Opening (ICD-10-PCS; 2016-08-30)
DX: A41.9 Sepsis, unspecified organism (principal); J96.01 Acute respiratory failure with hypoxia; J69.0 Pneumonitis due to inhalation of food and vomit; E87.0 Hyperosmolality and hypernatremia; E55.9 Vitamin D deficiency, unspecified; F10.129 Alcohol abuse with intoxication, unspecified; D50.9 Iron deficiency anemia, unspecified; J98.11 Atelectasis; D64.9 Anemia, unspecified; E87.6 Hypokalemia; B95.61 Methicillin susceptible Staphylococcus aureus infection as the cause of diseases classified elsewhere; B96.89 Other specified bacterial agents as the cause of diseases classified elsewhere; Y90.8 Blood alcohol level of 240 mg/100 ml or more
CPT/HCPCS: 36415; 36600; 70450; 71010; 80048; 80053; 80061; 80306; 81001; 81003; 82652; 82728; 82803; 82962; 83036; 83540; 83690; 83735; 84100; 84132; 84439; 84443; 84484; 85025; 87040; 87070; 87081; 87086; 92610; 93005; 94002; 94003; 94640; 94664; 94770; 96361; 96365; 96375; 97162; J1650; J1940; J1956; J2060; J2405; J2543; J3010; J3411; J3475; J3480; J7030; J7040; J7042

== ENCOUNTER 2018-12-23 23:36 | Emergency (ER) | payer MEDICAID ==
[~2018-12-23] VITALS: Ht 157.5 cm; Wt 75.3 kg
[~2018-12-23 23:36] MED LIST: CHLO5CAP2 PO; CHOL100062 PO; FER325 PO; LEVO750T8 PO; THIA100T56 PO
[2018-12-23 23:47] VITALS: BP 127/83; PULSE 61; RESP 18; Ht 157.5 cm; Wt 75.3 kg
--- NOTE | 2018-12-24 03:58 | ERD ---
ER Documentation Chief Complaint Chief Complaint possible foreign body left eye since yesterday, was cleaning broken window HPI This is a 33-year-old male who presents here to emerge department with complaints of left eye pain since yesterday. Stated that he thinks there is a foreign body/glass to his left ear. Stated he started after cleaning a broken window that is made of glass. Denies use of eyeglasses, contact lenses. Patient denies working with machines that has a high-speed. Denies headache, head injury, loss of consciousness, dizziness, neck pain, neck stiffness, throat pain, difficulty swallowing, difficulty breathing lying flat, shoulder pain, chest pain, back pain, abdominal pain, nausea, vomiting, constipation, diarrhea, urinary symptoms, loss of bowel and bladder control, trauma, injury, falls, difficulty walking due to pain, numbness or tingling sensation, calf pain, recent travel, recent major surgery in the last 3 weeks, calf pain, recent long travel, recent exposure to any illness, recent antibiotic use in the last 3 months, fever, chills, seizures. Past medical history: Surgical history: Social: Denies smoking, use of alcoholic beverages, use of illegal drugs. ROS All systems reviewed and are negative except as per history of present illness. Medications Home Meds Active Scripts Ibuprofen* (Motrin*) 800 Mg Tab, 800 MG PO Q6H PRN for PAIN AND OR ELEVATED TEMP, #30 TAB Prov:HAYLIE GABRIEL 12/24/18 Erythromycin Base (Erythromycin) 1 Gm Oint...g., 1 APPLIC BOTH EYES QID for 7 Days Prov:HAYLIE GABRIEL 12/24/18 Levofloxacin* (Levofloxacin*) 750 Mg Tablet, 750 MG PO DAILY for 5 Days, TAB Prov:FRANKLYN PENA NP 09/06/16 Thiamine* (Vitamin B-1*) 100 Mg Tablet, 100 MG PO DAILY for 30 Days, TAB Prov:FRANKLYN PENA NP 09/06/16 Ferrous Sulfate* (Ferrous Sulfate*) 325 Mg Tabec, 325 MG PO BID for 30 Days, TAB Prov:FRANKLYN PENA NP 09/06/16 Cholecalciferol* (Vitamin D3*) 1,000 Unit Tablet, 1000 UNIT PO DAILY for 30 Days, TAB Prov:FRANKLYN PENA NP 09/06/16 Chlordiazepoxide* (Chlordiazepoxide*) 5 Mg Capsule, 10 MG PO TID for 2 Days, CAP Prov:FRANKLYN PENA [employer] 09/06/16 Allergies Allergies: Coded Allergies: No Known Allergy (Unverified , 08/30/16) PMhx/Soc Hx Miscellaneous Medical Probl: Yes (ALCOHOL ABUSE) Hx Alcohol Use: Yes Hx Tobacco Use: No Physical Exam Vitals Vital Signs Date Temp Pulse Resp B/P (MAP) Pulse Ox O2 O2 Flow FiO2 Time Delivery Rate 12/23/18 97.4 61 18 127/83 97 23:47 (98) Physical Exam Const: No acute distress Head: Atraumatic Eyes: Normal Conjunctiva. Bilateral eyes: No conjunctival injection. There is no visual field loss. No bleeding. No discharge. Good eye movement. There is no pain in eye movement. Extraocular movement of his eyes are within normal limits. No icterus. ENT: Normal External Ears, Nose and Mouth. Bilateral ears: TMs are not erythematous. No bleeding with no discharge with no hearing loss with no mastoid tenderness. Nose: Midline without deviation. No septal hematoma. Lips/throat: No lip swelling. No tongue swelling. Able to control tongue movement. Uvula is in midline and nondisplaced. Tonsils are +1 bilaterally wit hout redness and without exudates. Tolerating secretions. Patent airway. Speaks full and clear sentences. Patent airway. Neck: Full range of motion. No meningismus. No nuchal rigidity. No signs of meningeal irritation. Resp: Clear to auscultation bilaterally Cardio: Regular rate and rhythm, no murmurs Abd: Soft, non tender, non distended. Normal bowel sounds. Skin: No petechiae or rashes Back: No midline or flank tenderness Ext: No cyanosis, or edema Neur: Awake and alert. No neurological deficits. Psych: Normal Mood and Affect Results 24 hrs Current Medications Medications Dose Sig/Edvin Start Time Status Last (Trade) Ordered Route PRN Stop Time Admin Dose Reason Admin Fluorescein 1 strip ONCE ONCE 12/24/18 DC Sodium BOTH EYES 04:00 ([id number] 12/24/18 04:01 p) Diphtheria/ 0.5 ml ONCE ONCE 12/24/18 DC 12/24/18 Tetanus/Acell IM* 04:00 05:02 Pertussis 12/24/18 04:01 (Adacel) Tetracaine 1 drop ONCE ONCE 12/24/18 DC HCl BOTH EYES 04:00 (Tetracaine 12/24/18 04:01 0.5% Steri-Unit Edelmira) 1 applic ONCE ONCE 12/24/18 DC Erythromycin BOTH EYES 06:00 12/24/18 06:01 (Erythromycin Oph Oint) Procedures/MDM Diagnostic tests: ED visual acuity: Left eye: 20/30. Right eye: 20/30. Bilateral eyes: 20/25. Eye exam under Motley lamp to bilateral eyes: Tetracaine drops. Fluorescein staining. No dendritic lesions. No obvious uptake. No foreign body seen. No signs of globe rupture. No signs of punctured globe. No bleeding. No discharge. Treatment: Adacel IM. Tetracaine. Fluorescein staining. Re-evaluation: There is no visual field loss. There is no pain in eye movement. Extraocular movement of his eyes are within normal limits. Stated that he feels much better at this time and that he is ready to go home. Romberg test is negative. No neurological deficit. Patient stated that he is comfortable going home. Family member stated that he looks so much better at this time and that they are ready to go home. Differential diagnosis I have low suspicion for acute closure angle glaucoma, globe rupture, punctured globe, blindness, herpes zoster ophthalmicus. Final diagnosis: Eye injury. Prescription: Erythromycin ophthalmic ointment. Follow-up with PCP in the next 24-48 hours. Follow-up with family resource coordinator in the next 24 to 48 hours. Come back here in the emergency department for any new symptoms or any worsening symptoms. All questions and concerns were answered. Patient and family members verbalized understanding and agreed with plan of care. Hemodynamically stable on discharge. Departure Diagnosis: Primary Impression: Eye injury Additional Impression: Corneal abrasion Condition: Stable Additional Instructions: Follow-up with PCP in the next 24-48 hours. Follow-up with family resource coordinator in the next 24 to 48 hours. Come back here in the emergency department for any new symptoms or any worsening symptoms. HAYILE GABRIEL Dec 24, 2018 03:58
[2018-12-24] MEDS ORDERED: FLUORESCEIN STRIP BOTH EYES ONE (04:00)
[2018-12-24] MEDS ORDERED: TETRACAINE 0.5% 4 ML OPH BOTH EYES ONE (04:00)
[2018-12-24] MEDS ORDERED: DIPHTH/TET/ACEL PERTUSS (ADULT) 0.5 ML VIAL IM* ONE (04:00)
[2018-12-24] MEDS ORDERED: IBUP800T48 PO (05:42)
[2018-12-24] MEDS ORDERED: ERYT1OIN6 BOTH EYES (05:42)
[2018-12-24] MEDS ORDERED: ERYTHROMYCIN 1 GM OPH OINT BOTH EYES ONE (06:00)
== END 2018-12-24 06:21 | disposition home or self-care (01) ==
LOC: FTE 23:36
DX: S05.02XA Injury of conjunctiva and corneal abrasion without foreign body, left eye, initial encounter (principal); X58.XXXA Exposure to other specified factors, initial encounter; Y92.9 Unspecified place or not applicable; Z23 Encounter for immunization
CPT/HCPCS: 90471; 90715; Z7502; Z7610

== ENCOUNTER 2019-03-09 20:21 | Emergency (ER) | payer MEDICAID ==
[~2019-03-09] VITALS: Ht 157.5 cm; Wt 75.3 kg
[~2019-03-09 20:21] MED LIST changes: +DOXY100T20 PO; +ERYT1OIN6 BOTH EYES; +IBUP-1542 PO; +IBUP800T48 PO
[2019-03-09 20:55] VITALS: Ht 157.5 cm; Wt 75.3 kg
[2019-03-09 23:45] VITALS: BP 114/68; PULSE 64; RESP 17
== END 2019-03-09 23:45 | disposition home or self-care (01) ==
LOC: FTE 20:21
DX: L60.0 Ingrowing nail (principal); L08.9 Local infection of the skin and subcutaneous tissue, unspecified
CPT/HCPCS: 99283